=== PATIENT | male | born 1970 | race Native Hawaiian/Other Pacific Islander ===

== ENCOUNTER 2020-02-22 17:47 | Inpatient (IN) | payer OTHER ==
[2020-02-22] MEDS ORDERED: SODIUM CHLORIDE 0.9% 1000 ML 1,000 ML IV ONE (18:00)
--- NOTE | 2020-02-22 18:12 | Emergency Department Report ---
ED Altered Mental Status HPI - General Stated Complaint: AMS/SEPTIC Time Seen by Provider: 02/22/20 17:55 Source: patient, family, EMS Mode of arrival: Stretcher Limitations: Altered Mental Status - History of Present Illness Initial Comments: CC: altered mental status HPI: This is a 50 yo without significant past medical history who presents with altered mental status. He arrived via EMS. History obtained from EMS. Family member stated that for the past 3 months, that he often has been sent home from work. He appeared depressed. His bedroom appeared dirty and very disorganized. He has not showered in days. He has not eaten in days. He is confused. He is unable to recall his name. He thinks that he is in [place]. He denies pain. He appears to have diffuse tenderness when nursing staff took off his clothing. Best 5 minutes developer support engineer used to obtain history. Patient states that he drinks beer every 8 days. MD Complaint: altered mental status, confusion -: Gradual, month(s) (3 months, worse over the last few days) Severity: severe Consistency of Symptoms: constant Context: alcohol abuse Associated Symptoms: denies other symptoms - Related Data Allergies Allergy/AdvReac Type Severity Reaction Status Date / Time No Known Allergies Allergy Unverified 02/22/20 18:14 ED Review of Systems ROS: Stated complaint: AMS/SEPTIC Other details as noted in HPI Comment: Unobtainable due to pts medical conditions (Altered mental status) ED Past Medical Hx - Past Medical History Previous Medical History?: No - Surgical History Past Surgical History?: No - Social History Smoking Status: Current Every Day Smoker Substance Use Type: Alcohol ED Physical Exam - General General appearance: alert, other (Pale jaundice skin tremulous appears ill, does answer questions with short responses) - Head Head exam: Present: atraumatic, normocephalic - Eye Eye exam: Present: PERRL, scleral icterus - ENT ENT exam: Present: mucous membranes moist - Neck Neck exam: Present: normal inspection, full ROM - Respiratory Respiratory exam: Present: normal lung sounds bilaterally. Absent: respiratory distress, wheezes, rales, rhonchi - Cardiovascular Cardiovascular Exam: Present: normal rhythm, tachycardia. Absent: systolic murmur, diastolic murmur, rubs, gallop - GI/Abdominal GI/Abdominal exam: Present: soft, normal bowel sounds. Absent: distended, tenderness, guarding, rebound - Rectal Rectal exam: Present: deferred - Extremities Exam Extremities exam: Present: normal inspection - Back Exam Back exam: Present: normal inspection - Neurological Exam Neurological exam: Present: alert, altered - Psychiatric Psychiatric exam: Present: anxious - Skin Skin exam: Present: warm, dry, intact, other (Jaundice). Absent: rash ED Course Vital Signs 02/22/20 02/22/20 02/22/20 17:55 18:00 18:01 Temperature 98.3 F Pulse Rate 124 H Respiratory 26 H Rate Blood Pressure 114/75 114/75 Blood Pressure [Right] O2 Sat by Pulse 99 100 100 Oximetry 02/22/20 02/22/20 02/22/20 18:15 18:21 18:31 Temperature Pulse Rate 123 H 121 H Respiratory 26 H 26 H 27 H Rate Blood Pressure 108/80 99/80 Blood Pressure [Right] O2 Sat by Pulse 99 99 100 Oximetry 02/22/20 02/22/20 02/22/20 18:45 19:01 19:15 Temperature Pulse Rate 124 H 119 H 119 H Respiratory 31 H 27 H 26 H Rate Blood Pressure 115/94 116/77 112/74 Blood Pressure [Right] O2 Sat by Pulse 98 Oximetry 02/22/20 02/22/20 02/22/20 19:31 20:05 20:31 Temperature Pulse Rate 128 H 112 H Respiratory 29 H 25 H 27 H Rate Blood Pressure 112/83 112/74 120/80 Blood Pressure [Right] O2 Sat by Pulse Oximetry 02/22/20 02/22/20 21:12 23:00 Temperature 98.4 F Pulse Rate 110 H Respiratory 20 22 Rate Blood Pressure Blood Pressure 120/79 [Right] O2 Sat by Pulse 97 Oximetry - Lab Data Result diagrams: 02/22/20 18:13 02/22/20 18:13 Lab Results 02/22/20 02/22/20 02/22/20 Range/Units 18:00 18:08 18:13 WBC 18.6 H (4.5-11.0) K/mm3 RBC 4.01 (3.65-5.03) M/mm3 Hgb 13.0 (11.8-15.2) gm/dl Hct 39.3 (35.5-45.6) % MCV 98 H (84-94) fl MCH 32 (28-32) pg MCHC 33 (32-34) % RDW 16.3 H (13.2-15.2) % Plt Count 208 (140-440) K/mm3 Lymph % (Auto) 7.7 L (13.4-35.0) % [place] % (Auto) 5.1 (0.0-7.3) % Eos % (Auto) 0.3 (0.0-4.3) % Baso % (Auto) 0.3 (0.0-1.8) % Lymph # (Auto) 1.4 (1.2-5.4) K/mm3 [place] # (Auto) 1.0 H (0.0-0.8) K/mm3 Eos # (Auto) 0.1 (0.0-0.4) K/mm3 Baso # (Auto) 0.1 (0.0-0.1) K/mm3 Seg Neutrophils % 86.6 H (40.0-70.0) % Seg Neutrophils # 16.1 H (1.8-7.7) K/mm3 PT (12.2-14.9) Sec. INR (0.87-1.13) Sodium (137-145) mmol/L Potassium (3.6-5.0) mmol/L Chloride (98-107) mmol/L Carbon Dioxide (22-30) mmol/L Anion Gap mmol/L BUN (9-20) mg/dL Creatinine (0.8-1.3) mg/dL Estimated GFR ml/min BUN/Creatinine Ratio % Glucose (75-100) mg/dL POC Glucose 149 H (70-105) Lactic Acid (0.7-2.0) mmol/L Calcium (8.4-10.2) mg/dL Total Bilirubin (0.1-1.2) mg/dL AST (5-40) units/L ALT (7-56) units/L Alkaline Phosphatase (35-129) units/L Ammonia (25-60) umol/L Total Creatine Kinase (55-170) units/L Troponin T (0.00-0.029) ng/mL Total Protein (6.3-8.2) g/dL Albumin (3.9-5) g/dL Albumin/Globulin Ratio % TSH (0.270-4.200) mlU/mL Salicylates (2.8-20.0) mg/dL Urine Opiates Screen Presumptive negative Urine Methadone Screen Presumptive negative Acetaminophen (10.0-30.0) ug/mL Ur Barbiturates Screen Presumptive negative Ur Phencyclidine Scrn Presumptive negative Ur Amphetamines Screen Presumptive negative U Benzodiazepines Scrn Presumptive negative Urine Cocaine Screen Presumptive negative U Marijuana (THC) Screen Presumptive negative Drugs of Abuse Note Disclamer Plasma/Serum Alcohol (0-0.07) % 02/22/20 02/22/20 02/22/20 Range/Units 18:13 18:13 18:13 WBC (4.5-11.0) K/mm3 RBC (3.65-5.03) M/mm3 Hgb (11.8-15.2) gm/dl Hct (35.5-45.6) % MCV (84-94) fl MCH (28-32) pg MCHC (32-34) % RDW (13.2-15.2) % Plt Count (140-440) K/mm3 Lymph % (Auto) (13.4-35.0) % [place] % (Auto) (0.0-7.3) % Eos % (Auto) (0.0-4.3) % Baso % (Auto) (0.0-1.8) % Lymph # (Auto) (1.2-5.4) K/mm3 [place] # (Auto) (0.0-0.8) K/mm3 Eos # (Auto) (0.0-0.4) K/mm3 Baso # (Auto) (0.0-0.1) K/mm3 Seg Neutrophils % (40.0-70.0) % Seg Neutrophils # (1.8-7.7) K/mm3 PT 15.3 H (12.2-14.9) Sec. INR 1.19 H (0.87-1.13) Sodium 130 L (137-145) mmol/L Potassium 3.1 L (3.6-5.0) mmol/L Chloride 92.4 L (98-107) mmol/L Carbon Dioxide 15 L (22-30) mmol/L Anion Gap 26 mmol/L BUN 32 H (9-20) mg/dL Creatinine 0.7 L (0.8-1.3) mg/dL Estimated GFR > 60 ml/min BUN/Creatinine Ratio 46 % Glucose 156 H (75-100) mg/dL POC Glucose (70-105) Lactic Acid 4.70 H* (0.7-2.0) mmol/L Calcium 8.5 (8.4-10.2) mg/dL Total Bilirubin 2.10 H (0.1-1.2) mg/dL AST 97 H (5-40) units/L ALT 45 (7-56) units/L Alkaline Phosphatase 110 (35-129) units/L Ammonia (25-60) umol/L Total Creatine Kinase 759 H (55-170) units/L Troponin T < 0.010 (0.00-0.029) ng/mL Total Protein 7.4 (6.3-8.2) g/dL Albumin 3.2 L (3.9-5) g/dL Albumin/Globulin Ratio 0.8 % TSH (0.270-4.200) mlU/mL Salicylates (2.8-20.0) mg/dL Urine Opiates Screen Urine Methadone Screen Acetaminophen (10.0-30.0) ug/mL Ur Barbiturates Screen Ur Phencyclidine Scrn Ur Amphetamines Screen U Benzodiazepines Scrn Urine Cocaine Screen U Marijuana (THC) Screen Drugs of Abuse Note Plasma/Serum Alcohol (0-0.07) % 02/22/20 02/22/20 02/22/20 Range/Units 18:13 18:13 18:13 WBC (4.5-11.0) K/mm3 RBC (3.65-5.03) M/mm3 Hgb (11.8-15.2) gm/dl Hct (35.5-45.6) % MCV (84-94) fl MCH (28-32) pg MCHC (32-34) % RDW (13.2-15.2) % Plt Count (140-440) K/mm3 Lymph % (Auto) (13.4-35.0) % [place] % (Auto) (0.0-7.3) % Eos % (Auto) (0.0-4.3) % Baso % (Auto) (0.0-1.8) % Lymph # (Auto) (1.2-5.4) K/mm3 [place] # (Auto) (0.0-0.8) K/mm3 Eos # (Auto) (0.0-0.4) K/mm3 Baso # (Auto) (0.0-0.1) K/mm3 Seg Neutrophils % (40.0-70.0) % Seg Neutrophils # (1.8-7.7) K/mm3 PT (12.2-14.9) Sec. INR (0.87-1.13) Sodium (137-145) mmol/L Potassium (3.6-5.0) mmol/L Chloride (98-107) mmol/L Carbon Dioxide (22-30) mmol/L Anion Gap mmol/L BUN (9-20) mg/dL Creatinine (0.8-1.3) mg/dL Estimated GFR ml/min BUN/Creatinine Ratio % Glucose (75-100) mg/dL POC Glucose (70-105) Lactic Acid (0.7-2.0) mmol/L Calcium (8.4-10.2) mg/dL Total Bilirubin (0.1-1.2) mg/dL AST (5-40) units/L ALT (7-56) units/L Alkaline Phosphatase (35-129) units/L Ammonia 59.0 (25-60) umol/L Total Creatine Kinase (55-170) units/L Troponin T (0.00-0.029) ng/mL Total Protein (6.3-8.2) g/dL Albumin (3.9-5) g/dL Albumin/Globulin Ratio % TSH 0.843 (0.270-4.200) mlU/mL Salicylates < 0.3 L (2.8-20.0) mg/dL Urine Opiates Screen Urine Methadone Screen Acetaminophen (10.0-30.0) ug/mL Ur Barbiturates Screen Ur Phencyclidine Scrn Ur Amphetamines Screen U Benzodiazepines Scrn Urine Cocaine Screen U Marijuana (THC) Screen Drugs of Abuse Note Plasma/Serum Alcohol (0-0.07) % 02/22/20 02/22/20 02/22/20 Range/Units 18:13 18:13 19:25 WBC (4.5-11.0) K/mm3 RBC (3.65-5.03) M/mm3 Hgb (11.8-15.2) gm/dl Hct (35.5-45.6) % MCV (84-94) fl MCH (28-32) pg MCHC (32-34) % RDW (13.2-15.2) % Plt Count (140-440) K/mm3 Lymph % (Auto) (13.4-35.0) % [place] % (Auto) (0.0-7.3) % Eos % (Auto) (0.0-4.3) % Baso % (Auto) (0.0-1.8) % Lymph # (Auto) (1.2-5.4) K/mm3 [place] # (Auto) (0.0-0.8) K/mm3 Eos # (Auto) (0.0-0.4) K/mm3 Baso # (Auto) (0.0-0.1) K/mm3 Seg Neutrophils % (40.0-70.0) % Seg Neutrophils # (1.8-7.7) K/mm3 PT (12.2-14.9) Sec. INR (0.87-1.13) Sodium (137-145) mmol/L Potassium (3.6-5.0) mmol/L Chloride (98-107) mmol/L Carbon Dioxide (22-30) mmol/L Anion Gap mmol/L BUN (9-20) mg/dL Creatinine (0.8-1.3) mg/dL Estimated GFR ml/min BUN/Creatinine Ratio % Glucose (75-100) mg/dL POC Glucose (70-105) Lactic Acid 3.80 H* (0.7-2.0) mmol/L Calcium (8.4-10.2) mg/dL Total Bilirubin (0.1-1.2) mg/dL AST (5-40) units/L ALT (7-56) units/L Alkaline Phosphatase (35-129) units/L Ammonia (25-60) umol/L Total Creatine Kinase (55-170) units/L Troponin T (0.00-0.029) ng/mL Total Protein (6.3-8.2) g/dL Albumin (3.9-5) g/dL Albumin/Globulin Ratio % TSH (0.270-4.200) mlU/mL Salicylates (2.8-20.0) mg/dL Urine Opiates Screen Urine Methadone Screen Acetaminophen 5.0 L (10.0-30.0) ug/mL Ur Barbiturates Screen Ur Phencyclidine Scrn Ur Amphetamines Screen U Benzodiazepines Scrn Urine Cocaine Screen U Marijuana (THC) Screen Drugs of Abuse Note Plasma/Serum Alcohol < 0.01 (0-0.07) % - EKG Data -: EKG Interpreted by Me EKG shows normal: sinus rhythm, axis, QRS complexes, ST-T waves Rate: tachycardia 02/22/20 19:25 EKG obtained 192 EKG obtained by me Sinus tachycardia rate 120 bpm normal axis prolonged QTC no ST elevation nonspecific T wave pattern - Medical Decision Making Acute toxic metabolic encephalopathy: DDX: delirium tremens, uremia, depression, intentional overdose, hepatic encephalopathy. Patient has obvious confusion. Unclear etiology. Hypovolemic Hyponatremia suspected with vasomotor nephropathy with hx of decreased po intake. alcoholic ketoacidosis vs starvation ketoacidosis suspected Garcia catheter placed with concern for retention. After volume resuscitation, no urine output in spite mildly distended bladder on CT. 300 mL dark urine expressed with garcia insertion. Elevated bilirubin, increased AST, fatty liver on CT: suspect alcoholic liver disease vs viral hepatitis SIRS criteria no obvious source Patient is admitted to the hospital service in fair condition Critical care attestation.: If time is entered above; I have spent that time in minutes in the direct care of this critically ill patient, excluding procedure time. ED Disposition Clinical Impression: Acute encephalopathy, SIRS (systemic inflammatory response syndrome), Alcoholic ketoacidosis, Alcoholic liver disease, Acute kidney injury, Hypovolemia d ehydration Disposition: 09 OP ADMIT IP TO THIS HOSP Is pt being admited?: Yes Does the pt Need Aspirin: No Condition: Fair
[2020-02-22 18:46] LABS: Basophils # (Auto) 0.1 K/mm3 (0.0-0.1); Basophils % (Auto) 0.3 % (0.0-1.8); Eosinophils # (Auto) 0.1 K/mm3 (0.0-0.4); Eosinophils % (Auto) 0.3 % (0.0-4.3); Hematocrit 39.3 % (35.5-45.6); Lymphocytes # (Auto) 1.4 K/mm3 (1.2-5.4); Lymphocytes % (Auto) 7.7 % (13.4-35.0); Mean Corpuscular HGB Conc 33 % (32-34); Mean Corpuscular Volume 98 fl (84-94); Monocytes % (Auto) 5.1 % (0.0-7.3); Platelet Count 208 K/mm3 (140-440); Red Blood Count 4.01 M/mm3 (3.65-5.03); Red Cell Distribution Width 16.3 % (13.2-15.2)
[2020-02-22 19:03] LABS: Alanine Aminotransferase 45 units/L (7-56); Albumin 3.2 g/dL (3.9-5); Blood Urea Nitrogen 32 mg/dL (9-20); Calcium 8.5 mg/dL (8.4-10.2); Hemolysis Index 8
[2020-02-22 19:07] LABS: INR 1.19 (0.87-1.13)
[2020-02-22 19:14] LABS: BUN/Creatinine Ratio 46
[2020-02-22] MEDS ORDERED: SODIUM CHLORIDE 0.9% 1000 ML IV SOLN IV ONE (19:21)
[2020-02-22] MEDS ORDERED: VANCOMYCIN 1,500 MG in SODIUM CHLORIDE 0.9% 500 ML 500 ML IV ONE (19:21)
[2020-02-22] MEDS ORDERED: VANCOMYCIN PHARMACY TO DOSE IV SCH (20:00)
--- NOTE | 2020-02-22 20:04 | XRay Report ---
CHEST 1 VIEW INDICATION / CLINICAL INFORMATION: Altered Mental Status. COMPARISON: None available. FINDINGS: SUPPORT DEVICES: None. HEART / MEDIASTINUM: No significant abnormality. LUNGS / PLEURA: No significant pulmonary or pleural abnormality. No pneumothorax. ADDITIONAL FINDINGS: No significant additional findings. IMPRESSION: 1. No acute findings. Signer Name: Casey Valle MD Signed: 02/22/2020 8:00 PM Workstation Name: [id number]
[2020-02-22] MEDS: CEFEPIME/NS 2 GM/100 ML 2 GM/100 ML BAG IV SCH (20:12)
--- NOTE | 2020-02-22 20:27 | Cat Scan Report ---
. CT head/brain wo con INDICATION / CLINICAL INFORMATION: 50 years Male; Altered Mental Status. TECHNIQUE: Routine CT head without contrast. All CT scans at this location are performed using CT dos e reduction for ALARA by means of automated exposure control. Study limited by motion and patient pos itioning in the scanner. COMPARISON: None. FINDINGS: BRAIN / INTRACRANIAL CONTENTS: No acute hemorrhage, mass effect, midline shift, hydrocephalus, or acu te, large territorial infarct. No chronic infarct or atrophy appreciated. No significant white matter abnormality. CRANIOCERVICAL JUNCTION: No significant abnormality. ORBITS: No significant abnormality of visualized orbits. SINUSES / MASTOIDS: No significant abnormality in the visualized paranasal sinuses or mastoid air tone ls. ADDITIONAL FINDINGS: None. IMPRESSION: 1. No focal mass, hemorrhage, hydrocephalus, or acute, large territorial infarct. Signer Name: Andres Ryan MD, III Signed: 02/22/2020 8:23 PM Workstation Name: [facility] CENTERHouseTripATLANTIC RE[facility] IN[facility]1
--- NOTE | 2020-02-22 21:10 | Cat Scan Report ---
CT CHEST, ABDOMEN, AND PELVIS WITH CONTRAST INDICATION: altered mental status, SIRS CONTRAST: 100 cc Omnipaque 300 IV COMPARISON: None available. All CT scans at this location are performed using CT dose reduction for ALARA by means of automated e xposure control. FINDINGS: No significant axillary or chest wall abnormalities are seen. No mediastinal or hilar any s are noted. No pleural effusions are seen. No obvious endobronchial lesions are noted. No pneumothor ax or pneumomediastinum are noted. Mild motion artifact is seen in the lung gonzalez but no areas of co nsolidation are seen. No obvious pulmonary nodules or masses are noted. Mild atelectatic changes are seen in the right lower lobe. No pneumoperitoneum is seen. Prominent fatty infiltration of the liver is noted without obvious focal lesion. The liver is not significantly enlarged however though is at the upper end of the normal ran ge in size at 17.2 cm. Spleen appears within normal limits. I see no abnormalities of the bile ducts, pancreas, adrenals, or left kidney. Right kidney shows a minimal probable cyst. Gallbladder is mildl y distended but shows no wall thickening or calculi. Appendix appears within normal limits. No evidence of bowel obstruction is seen. Colon is mildly dist ended with gas, particularly in the transverse colon. I do not see colonic wall thickening. Stomach i s mildly distended with gas and fluid. No focal inflammatory changes are seen. No abnormal fluid collections are seen to suggest an abscess. No lymphadenopathy is seen. No urinary obstructive changes are noted. No free fluid is seen. Urinary bladder is mildly distended but shows no other abnormalities. Prostate is slightly prominent in size . Seminal vesicles appear within normal limits. IMPRESSION: No acute abnormalities are seen. No obvious source of SIRS is noted. Signer Name: Uli Urrutia MD Signed: 02/22/2020 9:05 PM Workstation Name: [id number]
[2020-02-22] MEDS ORDERED: MAGNESIUM HYDROXIDE (MOM) ORAL LIQD UDC PO PRN (22:31)
--- NOTE | 2020-02-22 22:36 | History and Physical Report ---
History of Present Illness Date of examination: 02/22/20 Date of admission: 02/22/2020 Chief complaint: Altered Mental Status History of present illness: 50-year-old male with known history of alcohol abuse presents to the emergency room today for evaluation of changes in mental status. Family members indicates that over the past 3 months he has been sent back home from work as he appeared depressed. His apartment was said to be disorganized and unkept. He has not been taking a shower and he has also had decreased oral intake over the past 1 week. Patient appeared tremulous and confused but was able to answer a few questions through an wind energy engineer. Work-up in the emergency room today reveals a leukocytosis of 18.6. CT of the chest, abdomen and pelvis were unremarkable. He had elevated lactic acid and elevated BUN and creatinine. Patient is being admitted for encephalopathy, acute kidney injury, lactic acidosis and possible alcohol withdrawal. Past History Past Medical History: No medical history Past Surgical History: No surgical history Social history: smoking (Current daily smoker), alcohol abuse Family history: no significant family history Medications and Allergies Allergies Allergy/AdvReac Type Severity Reaction Status Date / Time No Known Allergies Allergy Unverified 02/22/20 18:14 Active Meds: Active Medications Cefepime HCl (Cefepime/Ns 2 Gm/100 Ml) 2 gm in 100 mls @ 200 mls/hr IV Q8HR [facility]; Protocol Last Admin: 02/22/20 20:12 Dose: 200 mls/hr Documented by: Vancomycin HCl 1,250 mg/ (Sodium Chloride) 275 mls @ 166.667 mls/hr IV Q12H [facility] Sodium Chloride (Nacl 0.9% 1000 Ml) 1,000 mls @ 125 mls/hr IV DIRECT [facility]INCENT Magnesium Hydroxide (Milk Of Magnesia) 30 ml PO Q4H PRN PRN Reason: Constipation Ondansetron HCl (Zofran) 4 mg IV Q8H PRN PRN Reason: Nausea And Vomiting Sodium Chloride (Sodium Chloride Flush Syringe 10 Ml) 10 ml IV BID [facility]ENT Sodium Chloride (Sodium Chloride Flush Syringe 10 Ml) 10 ml IV PRN PRN PRN Reason: LINE FLUSH Review of Systems ROS unobtainable: due to mental status Exam - Constitutional Vitals: Temp Pulse Resp BP Pulse Ox 98.3 F 112 H 20 120/80 98 02/22/20 18:01 02/22/20 20:05 02/22/20 21:12 02/22/20 20:31 02/22/20 18:45 General appearance: Present: no acute distress, well-nourished, other (Confused,Mildly tremulous) - EENT Eyes: Present: PERRL, EOM intact, scleral icterus (Tinge) ENT: hearing intact, clear oral mucosa, dentition normal - Neck Neck: Present: supple, normal ROM - Respiratory Respiratory effort: normal Respiratory: bilateral: CTA - Cardiovascular Rhythm: regular Heart Sounds: Present: S1 & S2. Absent: gallop, systolic murmur, diastolic murmur, rub - Extremities Extremities: no ischemia, pulses intact, pulses symmetrical, No edema, Full ROM Peripheral Pulses: within normal limits - Abdominal General gastrointestinal: Present: soft, non-tender, non-distended. Absent: mas s - Integumentary Integumentary: Present: clear, warm, dry. Absent: rash - Musculoskeletal Musculoskeletal: strength equal bilaterally - Psychiatric Psychiatric: appropriate mood/affect, intact judgment & insight, memory intact, cooperative - Neurologic Neurologic: CNII-XII intact, no focal deficits, moves all extremities HEART Score - HEART Score Troponin: Troponin T < 0.010 ng/mL (0.00-0.029) 02/22/20 18:13 Results - Labs CBC & Chem 7: 02/22/20 18:13 02/22/20 18:13 Labs: Abnormal lab results 02/22/20 02/22/20 02/22/20 Range/Units 18:08 18:13 18:13 WBC 18.6 H (4.5-11.0) K/mm3 MCV 98 H (84-94) fl RDW 16.3 H (13.2-15.2) % Lymph % (Auto) 7.7 L (13.4-35.0) % [place] # (Auto) 1.0 H (0.0-0.8) K/mm3 Seg Neutrophils % 86.6 H (40.0-70.0) % Seg Neutrophils # 16.1 H (1.8-7.7) K/mm3 PT 15.3 H (12.2-14.9) Sec. INR 1.19 H (0.87-1.13) Sodium (137-145) mmol/L Potassium (3.6-5.0) mmol/L Chloride (98-107) mmol/L Carbon Dioxide (22-30) mmol/L BUN (9-20) mg/dL Creatinine (0.8-1.3) mg/dL Glucose (75-100) mg/dL POC Glucose 149 H (70-105) Lactic Acid (0.7-2.0) mmol/L Total Bilirubin (0.1-1.2) mg/dL AST (5-40) units/L Total Creatine Kinase (55-170) units/L Albumin (3.9-5) g/dL Salicylates (2.8-20.0) mg/dL Acetaminophen (10.0-30.0) ug/mL 02/22/20 02/22/20 02/22/20 Range/Units 18:13 18:13 18:13 WBC (4.5-11.0) K/mm3 MCV (84-94) fl RDW (13.2-15.2) % Lymph % (Auto) (13.4-35.0) % [place] # (Auto) (0.0-0.8) K/mm3 Seg Neutrophils % (40.0-70.0) % Seg Neutrophils # (1.8-7.7) K/mm3 PT (12.2-14.9) Sec. INR (0.87-1.13) Sodium 130 L (137-145) mmol/L Potassium 3.1 L (3.6-5.0) mmol/L Chloride 92.4 L (98-107) mmol/L Carbon Dioxide 15 L (22-30) mmol/L BUN 32 H (9-20) mg/dL Creatinine 0.7 L (0.8-1.3) mg/dL Glucose 156 H (75-100) mg/dL POC Glucose (70-105) Lactic Acid 4.70 H* (0.7-2.0) mmol/L Total Bilirubin 2.10 H (0.1-1.2) mg/dL AST 97 H (5-40) units/L Total Creatine Kinase 759 H (55-170) units/L Albumin 3.2 L (3.9-5) g/dL Salicylates < 0.3 L (2.8-20.0) mg/dL Acetaminophen (10.0-30.0) ug/mL 02/22/20 02/22/20 Range/Units 18:13 19:25 WBC (4.5-11.0) K/mm3 MCV (84-94) fl RDW (13.2-15.2) % Lymph % (Auto) (13.4-35.0) % [place] # (Auto) (0.0-0.8) K/mm3 Seg Neutrophils % (40.0-70.0) % Seg Neutrophils # (1.8-7.7) K/mm3 PT (12.2-14.9) Sec. INR (0.87-1.13) Sodium (137-145) mmol/L Potassium (3.6-5.0) mmol/L Chloride (98-107) mmol/L Carbon Dioxide (22-30) mmol/L BUN (9-20) mg/dL Creatinine (0.8-1.3) mg/dL Glucose (75-100) mg/dL POC Glucose (70-105) Lactic Acid 3.80 H* (0.7-2.0) mmol/L Total Bilirubin (0.1-1.2) mg/dL AST (5-40) units/L Total Creatine Kinase (55-170) units/L Albumin (3.9-5) g/dL Salicylates (2.8-20.0) mg/dL Acetaminophen 5.0 L (10.0-30.0) ug/mL Assessment and Plan - Patient Problems (1) Acute encephalopathy Current Visit: Yes Status: Acute Plan to address problem: Etiology is unclear. Possibly secondary to his alcohol abuse Will monitor mental status. (2) Alcoholic ketoacidosis Current Visit: Yes Status: Acute Plan to address problem: Patient has known history of alcohol abuse. Will monitor for alcohol wi thdrawals symptoms. Patient placed on CIWA protocol (3) SIRS (systemic inflammatory response syndrome) Current Visit: Yes Status: Acute Plan to address problem: Patient started on empiric IV antibiotics and IV fluid. Will await blood culture results. (4) Hypokalemia Current Visit: Yes Status: Acute Plan to address problem: We will replete potassium and monitor chemistry. (5) DVT prophylaxis Current Visit: Yes Status: Acute Plan to address problem: Patient placed on subcutaneous heparin. (6) Full code status Current Visit: Yes Status: Acute
[2020-02-22] MEDS: SODIUM CHLORIDE 0.9% 1000 ML 1,000 ML IV SCH (23:29)
[2020-02-22] MEDS ORDERED: SODIUM CHLORIDE 0.9% 1000 ML 1,000 ML ONE (23:29)
[2020-02-23 00:11] LABS: Amphetamine Screen,Urine PRESUMPTIVE NEGATIVE; Benzodiazepines Screen,Urine PRESUMPTIVE NEGATIVE; Cannabinoid Screen,Urine PRESUMPTIVE NEGATIVE; Cocaine Screen,Urine PRESUMPTIVE NEGATIVE; Methadone Screen,Urine PRESUMPTIVE NEGATIVE; Opiate Screen,Urine PRESUMPTIVE NEGATIVE
[2020-02-23 01:00] LABS: Bacteria,Urine 1+ /HPF (Negative); Bilirubin,Urine NEG (Negative); Blood,Urine NEG (Negative); Color,Urine Amber (Yellow); Mucus,Urine 2+ /HPF; Protein,Urine <15 mg/dL mg/dL (Negative)
[2020-02-23] MEDS: CEFEPIME/NS 2 GM/100 ML 2 GM/100 ML BAG IV SCH ×3 (06:31→22:06)
[2020-02-23 07:57] LABS: Basophils # (Auto) 0.1 K/mm3 (0.0-0.1); Basophils % (Auto) 0.6 % (0.0-1.8); Eosinophils # (Auto) 0.2 K/mm3 (0.0-0.4); Eosinophils % (Auto) 1.1 % (0.0-4.3); Hematocrit 31.4 % (35.5-45.6); Hemoglobin 10.7 gm/dl (11.8-15.2); Lymphocytes # (Auto) 1.3 K/mm3 (1.2-5.4); Lymphocytes % (Auto) 9.4 % (13.4-35.0); Mean Corpuscular HGB Conc 34 % (32-34); Mean Corpuscular Volume 97 fl (84-94); Monocytes # (Auto) 0.8 K/mm3 (0.0-0.8); Monocytes % (Auto) 5.7 % (0.0-7.3); Platelet Count 146 K/mm3 (140-440); Red Blood Count 3.23 M/mm3 (3.65-5.03); Red Cell Distribution Width 15.9 % (13.2-15.2)
[2020-02-23] MEDS ORDERED: VANCOMYCIN 1,250 MG in SODIUM CHLORIDE 0.9% 250ML 250 ML IV SCH (08:00)
[2020-02-23] MEDS ORDERED: POTASSIUM CHLORIDE 10 MEQ 10 MEQ/100 ML BAG IV ONE (08:00)
[2020-02-23 08:11] LABS: Blood Urea Nitrogen 20 mg/dL (9-20); Calcium 7.7 mg/dL (8.4-10.2); Hemolysis Index 0
[2020-02-23] MEDS: SODIUM CHLORIDE 0.9% 1000 ML 1,000 ML IV SCH ×2 (08:23→22:09)
[2020-02-23 08:24] LABS: INR 1.33 (0.87-1.13)
[2020-02-23 08:25] LABS: BUN/Creatinine Ratio 50
[2020-02-23] MEDS: POTASSIUM CHLORIDE ER 20 MEQ TAB PO SCH ×3 (09:57→17:28)
[2020-02-23] MEDS ORDERED: POTASSIUM CHLORIDE ER 20 MEQ TAB PO SCH (10:00)
--- NOTE | 2020-02-23 11:58 | Progress Note ---
Subjective Date of service: 02/23/20 Interval history: History of present illness: 50-year-old male with known history of alcohol abuse presents to the emergency room today for evaluation of changes in mental status. Family members indicates that over the past 3 months he has been sent back home from work as he appeared depressed. His apartment was said to be disorganized and unkept. He has not been taking a shower and he has also had decreased oral intake over the past 1 week. Patient appeared tremulous and confused but was able to answer a few questions through an ship harbor pilot. Work-up in the emergency room today reveals a leukocytosis of 18.6. CT of the chest, abdomen and pelvis were unremarkable. He had elevated lactic acid and elevated BUN and creatinine. Patient is being admitted for encephalopathy, acute kidney injury, lactic acidosis and possible alcohol withdrawal. 02/22 patient is awake and alert, [id number], information obtained through an unofficial assistant manager pt, he does not know how he got into the hospital, he is oriented to his name and age, states the year is 2016. He denies any fever or chills. Denies chest pain or shortness of breath, denies nausea or abdominal pain or dysuria. He states he drinks about 3-4 beers a day and denies hard liquor. Denies smoking. Lab results reviewed Assessment and plan: Acute encephalopathy Rule out toxic versus metabolic versus alcoholism Appears to be improving well He is alert and oriented and responds to questions fairly well Continue IV fluids Sepsis versus SIRS: Blood cultures obtained Results pending Serial lactic acid levels are elevated but fluctuating up and down Continue empiric antibiotic with cefepime However will discontinue vancomycin for now No focus of infection Chest x-ray is reviewed Neutrophilic leukocytosis Reactive versus infection Improving WBC down to 13.6 today Continue empiric antibiotic Normocytic anemia No overt bleed Monitor H&H Hyponatremia Resolved Acute kidney injury-secondary to dehydration Improved Hypokalemia Serum potassium further dropped to 2.9 this morning Serum magnesium is in the normal range Oral potassium supplements were ordered Monitor electrolytes Elevated LFTs Only AST is elevated (mild) suggestive of alcohol etiology Monitor Mildly elevated CK Likely mild nontraumatic rhabdomyolysis Continue IV fluids Repeat CK levels in a.m. Objective - Constitutional Vitals: Vital Signs - 12hr 02/22/20 02/23/20 02/23/20 23:51 00:05 00:26 Temperature 97.8 F Pulse Rate 107 H 105 H 107 H Pulse Rate [ 98 H Apical] Pulse Rate [ Left Radial] Pulse Rate [ Right Radial] Respiratory 21 20 20 Rate Respiratory Rate [KYMBERLY] Blood Pressure 113/78 110/74 O2 Sat by Pulse 100 96 99 Oximetry 02/23/20 02/23/20 02/23/20 04:27 08:06 10:53 Temperature 98.7 F 98.3 F Pulse Rate 102 H 110 H Pulse Rate [ 106 H Apical] Pulse Rate [ 106 H Left Radial] Pulse Rate [ 106 H Right Radial] Respiratory 20 20 17 Rate Respiratory Rate [KYMBERLY] Blood Pressure 110/65 115/83 O2 Sat by Pulse 97 96 98 Oximetry 02/23/20 10:58 Temperature Pulse Rate Pulse Rate [ Apical] Pulse Rate [ Left Radial] Pulse Rate [ Right Radial] Respiratory Rate Respiratory 17 Rate [KYMBERLY] Blood Pressure O2 Sat by Pulse Oximetry General appearance: Present: no acute distress, well-nourished - EENT Eyes: PERRL, EOM intact ENT: hearing intact, clear oral mucosa - Neck Neck: supple, normal ROM, no masses or JVD - Respiratory Respiratory effort: normal Respiratory: bilateral: CTA - Cardiovascular Rhythm: regular Heart Sounds: Present: S1 & S2 Extremities: No edema - Gastrointestinal General gastrointestinal: Present: soft, non-tender Rectal Exam: deferred - Genitourinary Male genitourinary: deferred - Integumentary Integumentary: clear - Musculoskeletal Musculoskeletal: strength equal bilaterally - Neurologic Neurologic: moves all extremities - Psychiatric Psychiatric: appropriate mood/affect, cooperative - Labs CBC & Chem 7: 02/23/20 07:41 02/23/20 07:41 Labs: Abnormal lab results 02/22/20 02/22/20 02/22/20 Range/Units 18:08 18:13 18:13 WBC 18.6 H (4.5-11.0) K/mm3 RBC (3.65-5.03) M/mm3 Hgb (11.8-15.2) gm/dl Hct (35.5-45.6) % MCV 98 H (84-94) fl MCH (28-32) pg RDW 16.3 H (13.2-15.2) % Lymph % (Auto) 7.7 L (13.4-35.0) % Harper # (Auto) 1.0 H (0.0-0.8) K/mm3 Seg Neutrophils % 86.6 H (40.0-70.0) % Seg Neutrophils # 16.1 H (1.8-7.7) K/mm3 PT 15.3 H (12.2-14.9) Sec. INR 1.19 H (0.87-1.13) Sodium (137-145) mmol/L Potassium (3.6-5.0) mmol/L Chloride (98-107) mmol/L Carbon Dioxide (22-30) mmol/L BUN (9-20) mg/dL Creatinine (0.8-1.3) mg/dL Glucose (75-100) mg/dL POC Glucose 149 H (70-105) Lactic Acid (0.7-2.0) mmol/L Calcium (8.4-10.2) mg/dL Phosphorus (2.5-4.5) mg/dL Total Bilirubin (0.1-1.2) mg/dL AST (5-40) units/L Total Creatine Kinase (55-170) units/L Albumin (3.9-5) g/dL Salicylates (2.8-20.0) mg/dL Acetaminophen (10.0-30.0) ug/mL 02/22/20 02/22/20 02/22/20 Range/Units 18:13 18:13 18:13 WBC (4.5-11.0) K/mm3 RBC (3.65-5.03) M/mm3 Hgb (11.8-15.2) gm/dl Hct (35.5-45.6) % MCV (84-94) fl MCH (28-32) pg RDW (13.2-15.2) % Lymph % (Auto) (13.4-35.0) % Harper # (Auto) (0.0-0.8) K/mm3 Seg Neutrophils % (40.0-70.0) % Seg Neutrophils # (1.8-7.7) K/mm3 PT (12.2-14.9) Sec. INR (0.87-1.13) Sodium 130 L (137-145) mmol/L Potassium 3.1 L (3.6-5.0) mmol/L Chloride 92.4 L (98-107) mmol/L Carbon Dioxide 15 L (22-30) mmol/L BUN 32 H (9-20) mg/dL Creatinine 0.7 L (0.8-1.3) mg/dL Glucose 156 H (75-100) mg/dL POC Glucose (70-105) Lactic Acid 4.70 H* (0.7-2.0) mmol/L Calcium (8.4-10.2) mg/dL Phosphorus (2.5-4.5) mg/dL Total Bilirubin 2.10 H (0.1-1.2) mg/dL AST 97 H (5-40) units/L Total Creatine Kinase 759 H (55-170) units/L Albumin 3.2 L (3.9-5) g/dL Salicylates < 0.3 L (2.8-20.0) mg/dL Acetaminophen (10.0-30.0) ug/mL 02/22/20 02/22/20 02/23/20 Range/Units 18:13 19:25 00:25 WBC (4.5-11.0) K/mm3 RBC (3.65-5.03) M/mm3 Hgb (11.8-15.2) gm/dl Hct (35.5-45.6) % MCV (84-94) fl MCH (28-32) pg RDW (13.2-15.2) % Lymph % (Auto) (13.4-35.0) % Harper # (Auto) (0.0-0.8) K/mm3 Seg Neutrophils % (40.0-70.0) % Seg Neutrophils # (1.8-7.7) K/mm3 PT (12.2-14.9) Sec. INR (0.87-1.13) Sodium (137-145) mmol/L Potassium (3.6-5.0) mmol/L Chloride (98-107) mmol/L Carbon Dioxide (22-30) mmol/L BUN (9-20) mg/dL Creatinine (0.8-1.3) mg/dL Glucose (75-100) mg/dL POC Glucose (70-105) Lactic Acid 3.80 H* 3.60 H* (0.7-2.0) mmol/L Calcium (8.4-10.2) mg/dL Phosphorus (2.5-4.5) mg/dL Total Bilirubin (0.1-1.2) mg/dL AST (5-40) units/L Total Creatine Kinase (55-170) units/L Albumin (3.9-5) g/dL Salicylates (2.8-20.0) mg/dL Acetaminophen 5.0 L (10.0-30.0) ug/mL 02/23/20 02/23/20 02/23/20 Range/Units 00:25 07:41 07:41 WBC 13.6 H (4.5-11.0) K/mm3 RBC 3.23 L (3.65-5.03) M/mm3 Hgb 10.7 L (11.8-15.2) gm/dl Hct 31.4 L D (35.5-45.6) % MCV 97 H (84-94) fl MCH 33 H (28-32) pg RDW 15.9 H (13.2-15.2) % Lymph % (Auto) 9.4 L (13.4-35.0) % Harper # (Auto) (0.0-0.8) K/mm3 Seg Neutrophils % 83.2 H (40.0-70.0) % Seg Neutrophils # 11.3 H (1.8-7.7) K/mm3 PT 16.6 H (12.2-14.9) Sec. INR 1.33 H (0.87-1.13) Sodium (137-145) mmol/L Potassium (3.6-5.0) mmol/L Chloride (98-107) mmol/L Carbon Dioxide (22-30) mmol/L BUN (9-20) mg/dL Creatinine (0.8-1.3) mg/dL Glucose (75-100) mg/dL POC Glucose (70-105) Lactic Acid (0.7-2.0) mmol/L Calcium (8.4-10.2) mg/dL Phosphorus 2.20 L (2.5-4.5) mg/dL Total Bilirubin (0.1-1.2) mg/dL AST (5-40) units/L Total Creatine Kinase (55-170) units/L Albumin (3.9-5) g/dL Salicylates (2.8-20.0) mg/dL Acetaminophen (10.0-30.0) ug/mL 02/23/20 02/23/20 02/23/20 Range/Units 07:41 07:41 09:08 WBC (4.5-11.0) K/mm3 RBC (3.65-5.03) M/mm3 Hgb (11.8-15.2) gm/dl Hct (35.5-45.6) % MCV (84-94) fl MCH (28-32) pg RDW (13.2-15.2) % Lymph % (Auto) (13.4-35.0) % Harper # (Auto) (0.0-0.8) K/mm3 Seg Neutrophils % (40.0-70.0) % Seg Neutrophils # (1.8-7.7) K/mm3 PT (12.2-14.9) Sec. INR (0.87-1.13) Sodium (137-145) mmol/L Potassium 2.9 L* (3.6-5.0) mmol/L Chloride (98-107) mmol/L Carbon Dioxide (22-30) mmol/L BUN (9-20) mg/dL Creatinine 0.4 L (0.8-1.3) mg/dL Glucose 114 H (75-100) mg/dL POC Glucose (70-105) Lactic Acid 2.10 H* 2.30 H* (0.7-2.0) mmol/L Calcium 7.7 L (8.4-10.2) mg/dL Phosphorus (2.5-4.5) mg/dL Total Bilirubin (0.1-1.2) mg/dL AST (5-40) units/L Total Creatine Kinase (55-170) units/L Albumin (3.9-5) g/dL Salicylates (2.8-20.0) mg/dL Acetaminophen (10.0-30.0) ug/mL 02/23/20 Range/Units 10:03 WBC (4.5-11.0) K/mm3 RBC (3.65-5.03) M/mm3 Hgb (11.8-15.2) gm/dl Hct (35.5-45.6) % MCV (84-94) fl MCH (28-32) pg RDW (13.2-15.2) % Lymph % (Auto) (13.4-35.0) % Harper # (Auto) (0.0-0.8) K/mm3 Seg Neutrophils % (40.0-70.0) % Seg Neutrophils # (1.8-7.7) K/mm3 PT (12.2-14.9) Sec. INR (0.87-1.13) Sodium (137-145) mmol/L Potassium (3.6-5.0) mmol/L Chloride (98-107) mmol/L Carbon Dioxide (22-30) mmol/L BUN (9-20) mg/dL Creatinine (0.8-1.3) mg/dL Glucose (75-100) mg/dL POC Glucose (70-105) Lactic Acid 2.30 H* (0.7-2.0) mmol/L Calcium (8.4-10.2) mg/dL Phosphorus (2.5-4.5) mg/dL Total Bilirubin (0.1-1.2) mg/dL AST (5-40) units/L Total Creatine Kinase (55-170) units/L Albumin (3.9-5) g/dL Salicylates (2.8-20.0) mg/dL Acetaminophen (10.0-30.0) ug/mL HEART Score - HEART Score Troponin: Troponin T < 0.010 ng/mL (0.00-0.029) 02/22/20 18:13
[2020-02-23] MEDS: HEPARIN 5,000 UNIT/1 ML VIAL SUB-Q SCH ×2 (13:00→22:09)
[2020-02-24] MEDS: HEPARIN 5,000 UNIT/1 ML VIAL SUB-Q SCH ×3 (06:28→22:56)
[2020-02-24] MEDS: CEFEPIME/NS 2 GM/100 ML 2 GM/100 ML BAG IV SCH ×3 (06:28→22:54)
[2020-02-24] MEDS: SODIUM CHLORIDE 0.9% 1000 ML 1,000 ML IV SCH ×2 (07:16→19:25)
[2020-02-24 07:50] LABS: Hematocrit 29.1 % (35.5-45.6); Hemoglobin 9.8 gm/dl (11.8-15.2); Mean Corpuscular HGB Conc 34 % (32-34); Mean Corpuscular Volume 98 fl (84-94); Platelet Count 119 K/mm3 (140-440); Red Blood Count 2.96 M/mm3 (3.65-5.03)
[2020-02-24 08:07] LABS: Alanine Aminotransferase 33 units/L (7-56); Albumin 2.5 g/dL (3.9-5); Blood Urea Nitrogen 15 mg/dL (9-20); Calcium 7.7 mg/dL (8.4-10.2); Hemolysis Index 2
[2020-02-24 08:08] LABS: BUN/Creatinine Ratio 38
--- NOTE | 2020-02-24 17:32 | Discharge Summary ---
Providers - Providers Date of Admission: 02/22/20 22:07 Date of discharge: 02/24/20 Attending physician: NBA FRANCO Primary care physician: LIBRARY INFORMATION TECHNICIAN Hospitalization Condition: Fair Hospital course: 50-year-old male with known history of alcohol abuse presents to the emergency room today for evaluation of changes in mental status. Family members indicates that over the past 3 months he has been sent back home from work as he appeared depressed. His apartment was said to be disorganized and unkept. He has not been taking a shower and he has also had decreased oral intake over the past 1 week. Patient appeared tremulous and confused but was able to answer a few questions through an certified court/medical interpreter. Work-up in the emergency room today reveals a leukocytosis of 18.6. CT of the chest, abdomen and pelvis were unremarkable. He had elevated lactic acid and elevated BUN and creatinine. Patient is being admitted for encephalopathy, acute kidney injury, lactic acidosis and possible alcohol withdrawal. 02/22 patient is awake and alert, [id number], information obtained through an unofficial drum sprayer, he does not know how he got into the hospita l, he is oriented to his name and age, states the year is 2016. He denies any fever or chills. Denies chest pain or shortness of breath, denies nausea or abdominal pain or dysuria. He states he drinks about 3-4 beers a day and denies hard liquor. Denies smoking. Lab results reviewed Patient stable alert and oriented. No withdrawal effects. Assessment and plan: Acute encephalopathy Rule out toxic versus metabolic versus alcoholism Secondary to alcoholism. Sepsis versus SIRS: Blood cultures obtained No need for antibiotics. Altered sensorium secondary to alcohol. Leukocytes 6 improved to normal. Normocytic anemia No overt bleed Monitor H&H Hyponatremia Resolved Acute kidney injury-secondary to dehydration Improved Hypokalemia Serum potassium further dropped to 2.9 this morning Serum magnesium is in the normal range Oral potassium supplements were ordered Monitor electrolytes Supplemented Elevated LFTs Only AST is elevated (mild) suggestive of alcohol etiology Monitor Mildly elevated CK Likely mild nontraumatic rhabdomyolysis Continue IV fluids Repeat CK levels in a.m. Disposition: DC-01 TO HOME OR SELFCARE Time spent for discharge: 32 minutes - Discharge Diagnoses (1) Acute encephalopathy Status: Acute (2) Acute kidney injury Status: Acute (3) Alcoholic ketoacidosis Status: Acute (4) DVT prophylaxis Status: Acute (5) Hypokalemia Status: Acute Core Measure Documentation - Palliative Care Palliative Care/ Comfort Measures: Not Applicable - Core Measures Any of the following diagnoses?: none Exam - Constitutional Vitals: Temp Pulse Resp BP Pulse Ox 98.0 F 98 H 18 111/81 98 02/24/20 11:35 02/24/20 12:00 02/24/20 12:00 02/24/20 11:35 02/24/20 12:00 Plan Follow up with: ANH GLASS MD [Primary Care Provider] - 7 Days
[2020-02-24] MEDS ORDERED: POTASSIUM CHLORIDE ER 20 MEQ TAB PO ONE (17:42)
[2020-02-25] MEDS: SODIUM CHLORIDE 0.9% 1000 ML 1,000 ML IV SCH (06:09)
[2020-02-25] MEDS: HEPARIN 5,000 UNIT/1 ML VIAL SUB-Q SCH ×3 (06:10→22:52)
[2020-02-25 06:11] LABS: Hematocrit 29.2 % (35.5-45.6); Hemoglobin 9.9 gm/dl (11.8-15.2); Mean Corpuscular HGB Conc 34 % (32-34); Mean Corpuscular Volume 98 fl (84-94); Platelet Count 107 K/mm3 (140-440); Red Blood Count 2.97 M/mm3 (3.65-5.03); Red Cell Distribution Width 16.2 % (13.2-15.2)
[2020-02-25] MEDS: CEFEPIME/NS 2 GM/100 ML 2 GM/100 ML BAG IV SCH ×3 (06:16→23:37)
[2020-02-25 06:29] LABS: Alanine Aminotransferase 34 units/L (7-56); Albumin 2.3 g/dL (3.9-5); Blood Urea Nitrogen 10 mg/dL (9-20); Calcium 7.7 mg/dL (8.4-10.2); Hemolysis Index 4
[2020-02-25 06:38] LABS: BUN/Creatinine Ratio 25
[2020-02-25] MEDS ORDERED: LORazepam 2 MG/ML VIAL IV PRN (09:44)
--- NOTE | 2020-02-25 09:45 | Progress Note ---
Assessment and Plan - Patient Problems (1) Acute encephalopathy Current Visit: Yes Status: Acute Plan to address problem: Improved (2) Acute kidney injury Current Visit: Yes Status: Acute Plan to address problem: Improved (3) Alcoholic ketoacidosis Current Visit: Yes Status: Acute Plan to address problem: Improved (4) Hypokalemia Current Visit: Yes Status: Acute Plan to address problem: Supplemented (5) DVT prophylaxis Current Visit: Yes Status: Acute Plan to address problem: Heparin and GI prophylaxis Subjective Date of service: 02/24/20 Principal diagnosis: Acute encephalopathy, sepsis, paraplegia Interval history: 50-year-old male with known history of alcohol abuse presents to the emergency room today for evaluation of changes in mental status. Family members indicates that over the past 3 months he has been sent back home from work as he appeared depressed. His apartment was said to be disorganized and unkept. He has not been taking a shower and he has also had decreased oral intake over the past 1 week. Patient appeared tremulous and confused but was able to answer a few questions through an air bag curer. Work-up in the emergency room today reveals a leukocytosis of 18.6. CT of the chest, abdomen and pelvis were unremarkable. He had elevated lactic acid and elevated BUN and creatinine. Patient is being admitted for encephalopathy, acute kidney injury, lactic acidosis and possible alcohol withdrawal. Patient is still unable to lift both his legs Patient is very weak in both his legs Objective - Constitutional Vitals: Vital Signs - 12hr 02/24/20 02/25/20 23:12 03:28 Temperature 97.9 F 98.3 F Pulse Rate 106 H 96 H Respiratory 17 16 Rate Blood Pressure 111/84 105/67 O2 Sat by Pulse 97 97 Oximetry General appearance: Present: no acute distress, well-nourished - EENT Eyes: PERRL, EOM intact ENT: hearing intact, clear oral mucosa Ears: bilateral: normal - Neck Neck: supple, normal ROM - Respiratory Respiratory effort: normal Respiratory: bilateral: CTA - Breasts Breasts: normal - Cardiovascular Rhythm: regular Heart Sounds: Present: S1 & S2. Absent: gallop, rub Extremities: pulses intact, No edema, normal color, Full ROM - Gastrointestinal General gastrointestinal: Present: soft, non-tender, non-distended, normal bowel sounds - Genitourinary Male genitourinary: normal - Integumentary Integumentary: clear, warm, dry - Musculoskeletal Musculoskeletal: 1, strength equal bilaterally - Neurologic Neurologic: moves all extremities - Psychiatric Psychiatric: memory intact, appropriate mood/affect, intact judgment & insight - Labs CBC & Chem 7: 02/27/20 04:25 02/27/20 04:25 Labs: Abnormal lab results 02/25/20 02/25/20 Range/Units 05:27 05:27 WBC 11.8 H (4.5-11.0) K/mm3 RBC 2.97 L (3.65-5.03) M/mm3 Hgb 9.9 L (11.8-15.2) gm/dl Hct 29.2 L (35.5-45.6) % MCV 98 H (84-94) fl MCH 33 H (28-32) pg RDW 16.2 H (13.2-15.2) % Plt Count 107 L (140-440) K/mm3 Potassium 3.3 L (3.6-5.0) mmol/L Chloride 110.7 H (98-107) mmol/L Creatinine 0.4 L (0.8-1.3) mg/dL Calcium 7.7 L (8.4-10.2) mg/dL AST 74 H (5-40) units/L Total Creatine Kinase 353 H (55-170) units/L Total Protein 5.5 L (6.3-8.2) g/dL Albumin 2.3 L (3.9-5) g/dL HEART Score - HEART Score Troponin: Troponin T < 0.010 ng/mL (0.00-0.029) 02/22/20 18:13
[2020-02-25] MEDS: ONDANSETRON 4 MG/2 ML INJ IV PRN (22:57)
[2020-02-26] MEDS: CEFEPIME/NS 2 GM/100 ML 2 GM/100 ML BAG IV SCH ×4 (06:42→22:33)
[2020-02-26] MEDS: HEPARIN 5,000 UNIT/1 ML VIAL SUB-Q SCH ×3 (06:43→22:12)
[2020-02-26] MEDS: SODIUM CHLORIDE 0.9% 1000 ML 1,000 ML IV SCH ×2 (10:18→18:24)
--- NOTE | 2020-02-26 14:36 | Progress Note ---
Assessment and Plan - Patient Problems (1) Acute encephalopathy Current Visit: Yes Status: Acute Plan to address problem: Improved (2) Acute kidney injury Current Visit: Yes Status: Acute Plan to address problem: Improved (3) Alcoholic ketoacidosis Current Visit: Yes Status: Acute Plan to address problem: Improved (4) DVT prophylaxis Current Visit: Yes Status: Acute Plan to address problem: Heparin and GI prophylaxis (5) Hypokalemia Current Visit: Yes Status: Acute (6) Paraplegia Current Visit: Yes Status: Acute Plan to address problem: Work-up for both lower extremity weakness C-spine and L-spine MRI ordered. (7) Polyarthralgia Current Visit: Yes Status: Acute Plan to address problem: Work-up for rheumatoid arthritis gout and lupus. Sed rate CCP ARABELLA dsDNA ordered and rheumatoid factor ordered Subjective Date of service: 02/26/20 Principal diagnosis: Encephalopathy, RAFAEL, hypokalemia Interval history: 50-year-old male with known history of alcohol abuse presents to the emergency room today for evaluation of changes in mental status. Family members indicates that over the past 3 months he has been sent back home from work as he appeared depressed. His apartment was said to be disorganized and unkept. He has not been taking a shower and he has also had decreased oral intake over the past 1 week. Patient appeared tremulous and confused but was able to answer a few questions through an eligibility examiner. Work-up in the emergency room today reveals a leukocytosis of 18.6. CT of the chest, abdomen and pelvis were unremarkable. He had elevated lactic acid and elevated BUN and creatinine. Patient is being admitted for encephalopathy, acute kidney injury, lactic acidosis and possible alcohol withdrawal. Patient is still unable to lift both his legs Patient is very weak in both his legs Objective - Constitutional Vitals: Vital Signs - 12hr 02/26/20 02/26/20 02/26/20 04:40 07:29 08:00 Temperature 98.3 F 98.3 F Pulse Rate 96 H 100 H 100 H Respiratory 18 18 Rate Blood Pressure 103/76 113/76 O2 Sat by Pulse 97 98 Oximetry General appearance: Present: no acute distress, well-nourished - EENT Eyes: PERRL, EOM intact ENT: hearing intact, clear oral mucosa Ears: bilateral: normal - Neck Neck: supple, normal ROM - Respiratory Respiratory effort: normal Respiratory: bilateral: CTA - Breasts Breasts: normal - Cardiovascular Rhythm: regular Heart Sounds: Present: S1 & S2. Absent: gallop, rub Extremities: pulses intact, No edema, normal color, Full ROM - Gastrointestinal General gastrointestinal: Present: soft, non-tender, non-distended, normal bowel sounds - Genitourinary Male genitourinary: normal - Integumentary Integumentary: clear, warm, dry - Musculoskeletal Musculoskeletal: 1, strength equal bilaterally - Neurologic Neurologic: moves all extremities - Psychiatric Psychiatric: memory intact, appropriate mood/affect, intact judgment & insight - Labs CBC & Chem 7: 02/27/20 04:25 02/27/20 04:25 HEART Score - HEART Score Troponin: Troponin T < 0.010 ng/mL (0.00-0.029) 02/22/20 18:13
[2020-02-26] MEDS: methylPREDNISolone Sod Succinate 125 MG/2 ML INJ IV SCH ×2 (15:24→23:15)
[2020-02-26] MEDS: ONDANSETRON 4 MG/2 ML INJ IV PRN (18:29)
[2020-02-27 05:08] LABS: Hematocrit 30.8 % (35.5-45.6); Hemoglobin 10.7 gm/dl (11.8-15.2); Mean Corpuscular HGB Conc 35 % (32-34); Mean Corpuscular Volume 97 fl (84-94); Red Blood Count 3.18 M/mm3 (3.65-5.03); Red Cell Distribution Width 16.4 % (13.2-15.2)
[2020-02-27 05:09] LABS: Platelet Count 91 K/mm3 (140-440)
[2020-02-27 05:28] LABS: Alanine Aminotransferase 35 units/L (7-56); Albumin 2.5 g/dL (3.9-5); Blood Urea Nitrogen 12 mg/dL (9-20); Hemolysis Index 4
[2020-02-27 05:33] LABS: BUN/Creatinine Ratio 40
[2020-02-27] MEDS: CEFEPIME/NS 2 GM/100 ML 2 GM/100 ML BAG IV SCH (05:57)
[2020-02-27] MEDS: HEPARIN 5,000 UNIT/1 ML VIAL SUB-Q SCH ×3 (05:57→21:56)
[2020-02-27] MEDS: SODIUM CHLORIDE 0.9% 1000 ML 1,000 ML IV SCH ×3 (06:02→23:55)
[2020-02-27 07:58] LABS: Band Neutrophils # (Manual) 0.4 K/mm3; Basophils % (Manual) 0 % (0.0-1.8); Eosinophils % (Manual) 0 % (0.0-4.3); Monocytes % (Manual) 0 % (0.0-7.3); Total Cells Counted 100
[2020-02-27 07:59] LABS: Anisocytosis 1+; Hypochromasia Few; Macrocytosis Few; Platelet Estimate Consistent w Auto; Target Cells Rare
[2020-02-27] MEDS: methylPREDNISolone Sod Succinate 125 MG/2 ML INJ IV SCH ×3 (08:37→23:54)
--- NOTE | 2020-02-27 13:39 | Magnetic Resonance Report ---
MRI CERVICAL SPINE 02/27/2020 INDICATION / CLINICAL INFORMATION: MAIN. Neck pain. Paraplegia. Lower leg weakness. Technologist note: Patient motion, sequences repeated, best images possible. COMPARISON: None available. FINDINGS: GENERAL OBSERVATIONS: Unenhanced MR images of the cervical spine were obtained. Significant patient m otion artifact is present. There is no gross evidence of significant abnormality. There is no evidence of spinal cord compressio n or intrinsic spinal cord abnormality. Some mild diffuse disc bulging is present at the C5-6 and C6-7 levels, with no evidence of lateraliza tion. Subtle abnormalities of the disc and neural foramina may be obscured with this degree of motion artif act. CRANIO-CERVICAL JUNCTION: No definite abnormality. BONE MARROW: No definite abnormality. PARASPINAL SOFT TISSUES: No definite abnormality. IMPRESSION: Limited exam due to patient motion artifact. No evidence of spinal cord compression or intrinsic spi nal cord abnormality. Signer Name: Juan Francisco Cadena MD Signed: 02/27/2020 1:35 PM Workstation Name: [id number]
[2020-02-27] MEDS ORDERED: CEFEPIME/NS 2 GM/100 ML 2 GM/100 ML BAG IV SCH (14:00)
--- NOTE | 2020-02-27 15:45 | Consultation ---
History of Present Illness Consult date: 02/27/20 Reason for Consult: weakness History of present illness: Tele Neurology consult: The patient was admitted on 02/21, with ams, confusion, tremulous ad treated for ETOH withdrawal, sepsis. (.29, he was found that he cannot walk. though he is awake and alert. the admission note: 50-year-old male with known history of alcohol abuse presents to the emergency room today for evaluation of changes in mental status. Family members indicates that over the past 3 months he has been sent back home from work as he appeared depressed. His apartment was said to be disorganized and unkept. He has not been taking a shower and he has also had decreased oral intake over the past 1 week. Patient appeared tremulous and confused but was able to answer a few questions through an private branch exchange operator. Work-up in the emergency room today reveals a leukocytosis of 18.6. CT of the chest, abdomen and pelvis were unremarkable. He had elevated lactic acid and elevated BUN and creatinine. Patient is being admitted for encephalopathy, acute kidney injury, lactic acidosis and possible alcohol withdrawal. Past History Past Medical History: No medical history Past Surgical History: No surgical history Social history: smoking (Current daily smoker), alcohol abuse Family history: no significant family history Medications and Allergies Allergies Allergy/AdvReac Type Severity Reaction Status Date / Time No Known Allergies Allergy Unverified 02/22/20 18:14 Past History Past Medical History: No medical history Past Surgical History: No surgical history Social history: smoking (Current daily smoker), alcohol abuse Family history: no significant family history Medications and Allergies Allergies Allergy/AdvReac Type Severity Reaction Status Date / Time No Known Allergies Allergy Unverified 02/22/20 18:14 Home Medications Medication Instructions Recorded Confirmed Last Taken Type LORazepam [Ativan] 0.5 mg PO Q6H PRN 10 Days #24 02/24/20 Unknown Rx tablet Active Meds: Active Medications Heparin Sodium (Porcine) (Heparin) 5,000 unit SUB-Q Q8HR VINCENT Last Admin: 02/27/20 13:47 Dose: 5,000 unit Documented by: Sodium Chloride (Nacl 0.9% 1000 Ml) 1,000 mls @ 75 mls/hr IV DIRECT VINCENT Last Admin: 02/27/20 12:33 Dose: 125 mls/hr Documented by: Lorazepam (Ativan) 2 mg IV Q1H PRN PRN Reason: CIWA-Ar 8-15 Last Admin: 02/25/20 10:19 Dose: 2 mg Documented by: Magnesium Hydroxide (Milk Of Magnesia) 30 ml PO Q4H PRN PRN Reason: Constipation Methylprednisolone Sodium Succinate (Solu-Medrol) 60 mg IV Q8H [facility] Last Admin: 02/27/20 08:37 Dose: 60 mg Documented by: Ondansetron HCl (Zofran) 4 mg IV Q8H PRN PRN Reason: Nausea And Vomiting Last Admin: 02/26/20 18:29 Dose: 4 mg Documented by: Sodium Chloride (Sodium Chloride Flush Syringe 10 Ml) 10 ml IV BID [facility] Last Admin: 02/27/20 09:36 Dose: 10 ml Documented by: Sodium Chloride (Sodium Chloride Flush Syringe 10 Ml) 10 ml IV PRN PRN PRN Reason: LINE FLUSH Review of Systems All systems: negative (pain and weakness in limbs) Constitutional: weakness Physical Examination - Vital Signs Vital Signs: Vital Signs Pulse Ox 99 02/22/20 17:55 - Physical Exam Narrative exam: Neurology examination: does not speak macedonian. he is awake alert talking. he follows the commands . cn- eomi no facial asymmetry M- moves ue and lifts his arma up but may have weak applied researcher both hands. the patient not moving his legs. Dr. Freedman tried to move his legs, but seems to be painful on movement. the patient not bee able o tell where is the pain. it seems flaccid. Laboratory Results - last 72 hr 02/25/20 02/25/20 02/26/20 05:27 05:27 16:55 WBC 11.8 H RBC 2.97 L Hgb 9.9 L Hct 29.2 L MCV 98 H MCH 33 H MCHC 34 RDW 16.2 H Plt Count 107 L Add Manual Diff Total Counted Seg Neutrophils % Seg Neuts % (Manual) Band Neutrophils % Lymphocytes % (Manual) Reactive Lymphs % (Man) Monocytes % (Manual) Eosinophils % (Manual) Basophils % (Manual) Metamyelocytes % Myelocytes % Promyelocytes % Blast Cells % Nucleated RBC % Seg Neutrophils # Man Band Neutrophils # Lymphocytes # (Manual) Abs React Lymphs (Man) Monocytes # (Manual) Eosinophils # (Manual) Basophils # (Manual) Metamyelocytes # Myelocytes # Promyelocytes # Blast Cells # WBC Morphology Hypersegmented Neuts Hyposegmented Neuts Hypogranular Neuts Smudge Cells Toxic Granulation Toxic Vacuolation Dohle Bodies Pelger-Huet Anomaly Renetta Rods Platelet Estimate Clumped Platelets Plt Clumps, EDTA Large Platelets Giant Platelets Platelet Satelliting Plt Morphology Comment RBC Morphology Dimorphic RBCs Polychromasia Hypochromasia Poikilocytosis Anisocytosis Microcytosis Macrocytosis Spherocytes Pappenheimer Bodies Sickle Cells Target Cells Tear Drop Cells Ovalocytes Helmet Cells [place] Bodies [place] Rings Samuel Cells Bite Cells Crenated Cell Elliptocytes Acanthocytes (Spur) Rouleaux Hemoglobin C Crystals Schistocytes Malaria parasites ESR 39 [place] Bodies Hem Pathologist Commnt Sodium 142 Potassium 3.3 L Chloride 110.7 H Carbon Dioxide 22 Anion Gap 13 BUN 10 Creatinine 0.4 L Estimated GFR > 60 BUN/Creatinine Ratio 25 Glucose 98 Uric Acid Calcium 7.7 L Total Bilirubin 0.90 AST 74 H ALT 34 Alkaline Phosphatase 86 Total Creatine Kinase 353 H C-Reactive Protein Total Protein 5.5 L Albumin 2.3 L Albumin/Globulin Ratio 0.7 Rheumatoid Factor 02/26/20 02/26/20 02/26/20 16:55 16:55 16:55 WBC RBC Hgb Hct MCV MCH MCHC RDW Plt Count Add Manual Diff Total Counted Seg Neutrophils % Seg Neuts % (Manual) Band Neutrophils % Lymphocytes % (Manual) Reactive Lymphs % (Man) Monocytes % (Manual) Eosinophils % (Manual) Basophils % (Manual) Metamyelocytes % Myelocytes % Promyelocytes % Blast Cells % Nucleated RBC % Seg Neutrophils # Man Band Neutrophils # Lymphocytes # (Manual) Abs React Lymphs (Man) Monocytes # (Manual) Eosinophils # (Manual) Basophils # (Manual) Metamyelocytes # Myelocytes # Promyelocytes # Blast Cells # WBC Morphology Hypersegmented Neuts Hyposegmented Neuts Hypogranular Neuts Smudge Cells Toxic Granulation Toxic Vacuolation Dohle Bodies Pelger-Huet Anomaly Renetta Rods Platelet Estimate Clumped Platelets Plt Clumps, EDTA Large Platelets Giant Platelets Platelet Satelliting Plt Morphology Comment RBC Morphology Dimorphic RBCs Polychromasia Hypochromasia Poikilocytosis Anisocytosis Microcytosis Macrocytosis Spherocytes Pappenheimer Bodies Sickle Cells Target Cells Tear Drop Cells Ovalocytes Helmet Cells [place] Bodies [place] Samuel Cells Bite Cells Crenated Cell Elliptocytes Acanthocytes (Spur) Rouleaux Hemoglobin C Crystals Schistocytes Malaria parasites ESR [place] Bodies Hem Pathologist Commnt Sodium Potassium Chloride Carbon Dioxide Anion Gap BUN Creatinine Estimated GFR BUN/Creatinine Ratio Glucose Uric Acid 2.2 L Calcium Total Bilirubin AST ALT Alkaline Phosphatase Total Creatine Kinase C-Reactive Protein 6.40 H Total Protein Albumin Albumin/Globulin Ratio Rheumatoid Factor < 10 02/27/20 02/27/20 02/27/20 04:25 04:25 04:25 WBC 14.6 H RBC 3.18 L Hgb 10.7 L Hct 30.8 L MCV 97 H MCH 34 H MCHC 35 H RDW 16.4 H Plt Count 91 L Add Manual Diff Complete Total Counted 100 Seg Neutrophils % Ground Support Equipment Fitter Seg Neuts % (Manual) 93.0 H Band Neutrophils % 3.0 Lymphocytes % (Manual) 4.0 L Reactive Lymphs % (Man) 0 Monocytes % (Manual) 0 Eosinophils % (Manual) 0 Basophils % (Manual) 0 Metamyelocytes % 0 Myelocytes % 0 Promyelocytes % 0 Blast Cells % 0 Nucleated RBC % Not Reportable Seg Neutrophils # Man 13.6 H Band Neutrophils # 0.4 Lymphocytes # (Manual) 0.6 L Abs React Lymphs (Man) 0.0 Monocytes # (Manual) 0.0 Eosinophils # (Manual) 0.0 Basophils # (Manual) 0.0 Metamyelocytes # 0.0 Myelocytes # 0.0 Promyelocytes # 0.0 Blast Cells # 0.0 WBC Morphology Not Reportable Hypersegmented Neuts Not Reportable Hyposegmented Neuts Not Reportable Hypogranular Neuts Not Reportable Smudge Cells Not Reportable Toxic Granulation Not Reportable Toxic Vacuolation Not Reportable Dohle Bodies Not Reportable Pelger-Huet Anomaly Not Reportable Renetta Rods Not Reportable Platelet Estimate Consistent w auto Clumped Platelets Not Reportable Plt Clumps, EDTA Not Reportable Large Platelets Not Reportable Giant Platelets Not Reportable Platelet Satelliting Not Reportable Plt Morphology Comment Not Reportable RBC Morphology Not Reportable Dimorphic RBCs Not Reportable Polychromasia Not Reportable Hypochromasia Few Poikilocytosis Not Reportable Anisocytosis 1+ Microcytosis Not Reportable Macrocytosis Few Spherocytes Not Reportable Pappenheimer Bodies Not Reportable Sickle Cells Not Reportable Target Cells Rare Tear Drop Cells Not Reportable Ovalocytes Not Reportable Helmet Cells Not Reportable [place] Bodies Not Reportable [place] Not Reportable [place] Cells Not Reportable Bite Cells Not Reportable Crenated Cell Not Reportable Elliptocytes Not Reportable Acanthocytes (Spur) Not Reportable Rouleaux Not Reportable Hemoglobin C Crystals Not Reportable Schistocytes Not Reportable Malaria parasites Not Reportable ESR [place] Bodies Not Reportable Hem Pathologist Commnt No Sodium 137 Potassium 3.6 Chloride 104.5 Carbon Dioxide 22 Anion Gap 14 BUN 12 Creatinine 0.3 L Estimated GFR > 60 BUN/Creatinine Ratio 40 Glucose 149 H Uric Acid 1.9 L Calcium 8.0 L Total Bilirubin 0.80 AST 62 H ALT 35 Alkaline Phosphatase 98 Total Creatine Kinase C-Reactive Protein Total Protein 5.9 L Albumin 2.5 L Albumin/Globulin Ratio 0.7 Rheumatoid Factor Results - Laboratory Findings CBC and BMP: 02/27/20 04:25 02/27/20 04:25 Abnormal Lab Findings: Abnormal Labs 02/22/20 02/22/20 02/22/20 18:08 18:13 18:13 WBC 18.6 H RBC Hgb Hct MCV 98 H MCH MCHC RDW 16.3 H Plt Count Lymph % (Auto) 7.7 L [place] # (Auto) 1.0 H Seg Neutrophils % 86.6 H Seg Neuts % (Manual) Lymphocytes % (Manual) Seg Neutrophils # 16.1 H Seg Neutrophils # Man Lymphocytes # (Manual) PT 15.3 H INR 1.19 H Sodium Potassium Chloride Carbon Dioxide BUN Creatinine Glucose POC Glucose 149 H Lactic Acid Uric Acid Calcium Phosphorus Total Bilirubin AST Total Creatine Kinase C-Reactive Protein Total Protein Albumin Salicylates Acetaminophen 02/22/20 02/22/20 02/22/20 18:13 18:13 18:13 WBC RBC Hgb Hct MCV MCH MCHC RDW Plt Count Lymph % (Auto) [place] # (Auto) Seg Neutrophils % Seg Neuts % (Manual) Lymphocytes % (Manual) Seg Neutrophils # Seg Neutrophils # Man Lymphocytes # (Manual) PT INR Sodium 130 L Potassium 3.1 L Chloride 92.4 L Carbon Dioxide 15 L BUN 32 H Creatinine 0.7 L Glucose 156 H POC Glucose Lactic Acid 4.70 H* Uric Acid Calcium Phosphorus Total Bilirubin 2.10 H AST 97 H Total Creatine Kinase 759 H C-Reactive Protein Total Protein Albumin 3.2 L Salicylates < 0.3 L Acetaminophen 02/22/20 02/22/20 02/23/20 18:13 19:25 00:25 WBC RBC Hgb Hct MCV MCH MCHC RDW Plt Count Lymph % (Auto) [place] # (Auto) Seg Neutrophils % Seg Neuts % (Manual) Lymphocytes % (Manual) Seg Neutrophils # Seg Neutrophils # Man Lymphocytes # (Manual) PT INR Sodium Potassium Chloride Carbon Dioxide BUN Creatinine Glucose POC Glucose Lactic Acid 3.80 H* 3.60 H* Uric Acid Calcium Phosphorus Total Bilirubin AST Total Creatine Kinase C-Reactive Protein Total Protein Albumin Salicylates Acetaminophen 5.0 L 02/23/20 02/23/20 02/23/20 00:25 07:41 07:41 WBC 13.6 H RBC 3.23 L Hgb 10.7 L Hct 31.4 L D MCV 97 H MCH 33 H MCHC RDW 15.9 H Plt Count Lymph % (Auto) 9.4 L [place] # (Auto) Seg Neutrophils % 83.2 H Seg Neuts % (Manual) Lymphocytes % (Manual) Seg Neutrophils # 11.3 H Seg Neutrophils # Man Lymphocytes # (Manual) PT 16.6 H INR 1.33 H Sodium Potassium Chloride Carbon Dioxide BUN Creatinine Glucose POC Glucose Lactic Acid Uric Acid Calcium Phosphorus 2.20 L Total Bilirubin AST Total Creatine Kinase C-Reactive Protein Total Protein Albumin Salicylates Acetaminophen 02/23/20 02/23/20 02/23/20 07:41 07:41 09:08 WBC RBC Hgb Hct MCV MCH MCHC RDW Plt Count Lymph % (Auto) [place] # (Auto) Seg Neutrophils % Seg Neuts % (Manual) Lymphocytes % (Manual) Seg Neutrophils # Seg Neutrophils # Man Lymphocytes # (Manual) PT INR Sodium Potassium 2.9 L* Chloride Carbon Dioxide BUN Creatinine 0.4 L Glucose 114 H POC Glucose Lactic Acid 2.10 H* 2.30 H* Uric Acid Calcium 7.7 L Phosphorus Total Bilirubin AST Total Creatine Kinase C-Reactive Protein Total Protein Albumin Salicylates Acetaminophen 02/23/20 02/23/20 02/23/20 10:03 13:37 18:00 WBC RBC Hgb Hct MCV MCH MCHC RDW Plt Count Lymph % (Auto) [place] # (Auto) Seg Neutrophils % Seg Neuts % (Manual) Lymphocytes % (Manual) Seg Neutrophils # Seg Neutrophils # Man Lymphocytes # (Manual) PT INR Sodium Potassium Chloride Carbon Dioxide BUN Creatinine Glucose POC Glucose Lactic Acid 2.30 H* 3.70 H* 2.80 H* Uric Acid Calcium Phosphorus Total Bilirubin AST Total Creatine Kinase C-Reactive Protein Total Protein Albumin Salicylates Acetaminophen 02/24/20 02/24/20 02/24/20 07:15 07:15 07:15 WBC 11.2 H RBC 2.96 L Hgb 9.8 L Hct 29.1 L MCV 98 H MCH 33 H MCHC RDW 16.0 H Plt Count 119 L Lymph % (Auto) [place] # (Auto) Seg Neutrophils % Seg Neuts % (Manual) Lymphocytes % (Manual) Seg Neutrophils # Seg Neutrophils # Man Lymphocytes # (Manual) PT INR Sodium Potassium 3.5 L D Chloride 111.6 H Carbon Dioxide BUN Creatinine 0.4 L Glucose 109 H POC Glucose Lactic Acid Uric Acid Calcium 7.7 L Phosphorus Total Bilirubin AST 67 H Total Creatine Kinase 265 H C-Reactive Protein Total Protein 5.5 L D Albumin 2.5 L Salicylates Acetaminophen 02/25/20 02/25/20 02/26/20 05:27 05:27 16:55 WBC 11.8 H RBC 2.97 L Hgb 9.9 L Hct 29.2 L MCV 98 H MCH 33 H MCHC RDW 16.2 H Plt Count 107 L Lymph % (Auto) [place] # (Auto) Seg Neutrophils % Seg Neuts % (Manual) Lymphocytes % (Manual) Seg Neutrophils # Seg Neutrophils # Man Lymphocytes # (Manual) PT INR Sodium Potassium 3.3 L Chloride 110.7 H Carbon Dioxide BUN Creatinine 0.4 L Glucose POC Glucose Lactic Acid Uric Acid Calcium 7.7 L Phosphorus Total Bilirubin AST 74 H Total Creatine Kinase 353 H C-Reactive Protein 6.40 H Total Protein 5.5 L Albumin 2.3 L Salicylates Acetaminophen 02/26/20 02/27/20 02/27/20 16:55 04:25 04:25 WBC 14.6 H RBC 3.18 L Hgb 10.7 L Hct 30.8 L MCV 97 H MCH 34 H MCHC 35 H RDW 16.4 H Plt Count 91 L Lymph % (Auto) [place] # (Auto) Seg Neutrophils % Seg Neuts % (Manual) 93.0 H Lymphocytes % (Manual) 4.0 L Seg Neutrophils # Seg Neutrophils # Man 13.6 H Lymphocytes # (Manual) 0.6 L PT INR Sodium Potassium Chloride Carbon Dioxide BUN Creatinine 0.3 L Glucose 149 H POC Glucose Lactic Acid Uric Acid 2.2 L Calcium 8.0 L Phosphorus Total Bilirubin AST 62 H Total Creatine Kinase C-Reactive Protein Total Protein 5.9 L Albumin 2.5 L Salicylates Acetaminophen 02/27/20 04:25 WBC RBC Hgb Hct MCV MCH MCHC RDW Plt Count Lymph % (Auto) [place] # (Auto) Seg Neutrophils % Seg Neuts % (Manual) Lymphocytes % (Manual) Seg Neutrophils # Seg Neutrophils # Man Lymphocytes # (Manual) PT INR Sodium Potassium Chloride Carbon Dioxide BUN Creatinine Glucose POC Glucose Lactic Acid Uric Acid 1.9 L Calcium Phosphorus Total Bilirubin AST Total Creatine Kinase C-Reactive Protein Total Protein Albumin Salicylates Acetaminophen Assessment and Plan 1- rule out GBS, until proven otherwise. also possible myositis. ck 02/23- 276 and 02/24- 353- not that high though. ----a repeat ck will be done. MRI l/s - unremarkable. MRI c- spine- limited by movement artifact, but does not seems that the cord been compromised. ---plan to have the LP ( Dr. Freedman is going to order LP and blood tests ). CSF for cell count with differentia, glucose, protein. if there is albuminocytologic dissociation, then would need to start IvIgG. a repeat ck will be done, aldolase. 2- Alcohol withdrawal- resolved. thanks.
--- NOTE | 2020-02-27 16:37 | Magnetic Resonance Report ---
MRI LUMBAR SPINE 02/27/2020 INDICATION / CLINICAL INFORMATION: Paraplegia. Lower leg weakness.. COMPARISON: None available. FINDINGS: GENERAL OBSERVATIONS: Unenhanced MR images of the lumbar spine demonstrate no evidence of significant abnormality. Vertebral body height and alignment is well preserved at all levels. Disc profiles are well-preserved at all levels, with no evidence of disc herniation or nerve root com pression. BONE MARROW: No significant abnormality. 1.5 cm hemangioma present at L2, generally considered to be of no clinical significance. SPINAL CORD/CAUDA EQUINA: Unremarkable PARASPINAL SOFT TISSUES: No significant abnormality. IMPRESSION: No significant abnormality. Signer Name: Juan Francisco Cadena MD Signed: 02/27/2020 4:33 PM Workstation Name: [email or web address]
[2020-02-28] MEDS: HEPARIN 5,000 UNIT/1 ML VIAL SUB-Q SCH ×3 (05:47→21:18)
[2020-02-28] MEDS: SODIUM CHLORIDE 0.9% 1000 ML 1,000 ML IV SCH ×2 (05:48→19:22)
[2020-02-28] MEDS: methylPREDNISolone Sod Succinate 125 MG/2 ML INJ IV SCH ×2 (08:19→16:55)
--- NOTE | 2020-02-28 12:01 | Progress Note ---
Assessment and Plan - Patient Problems (1) Acute encephalopathy Current Visit: Yes Status: Acute Plan to address problem: Improved (2) Acute kidney injury Current Visit: Yes Status: Acute Plan to address problem: Improved (3) Alcoholic ketoacidosis Current Visit: Yes Status: Acute Plan to address problem: Improved (4) Hypokalemia Current Visit: Yes Status: Acute (5) Paraplegia Current Visit: Yes Status: Acute Plan to address problem: Work-up for both lower extremity weakness C-spine and L-spine MRI normal (6) Polyarthralgia Current Visit: Yes Status: Acute Plan to address problem: Work-up for rheumatoid arthritis gout and lupus. Sed rate CCP ARABELLA dsDNA ordered and rheumatoid factor ordered (7) DVT prophylaxis Current Visit: Yes Status: Acute Plan to address problem: Heparin and GI prophylaxis Subjective Date of service: 02/27/20 Principal diagnosis: Paraplegia COVID-19 positive test (U07.1, COVID-19) with Viral Sepsis (A4 Interval history: 50-year-old male with known history of alcohol abuse presents to the emergency room today for evaluation of changes in mental status. Family members indicates that over the past 3 months he has been sent back home from work as he appeared depressed. His apartment was said to be disorganized and unkept. He has not been taking a shower and he has also had decreased oral intake over the past 1 week. Patient appeared tremulous and confused but was able to answer a few questions through an lapel padder. Work-up in the emergency room today reveals a leukocytosis of 18.6. CT of the chest, abdomen and pelvis were unremarkable. He had elevated lactic acid and elevated BUN and creatinine. Patient is being admitted for encephalopathy, acute kidney injury, lactic acidosis and possible alcohol withdrawal. Patient is still unable to lift both his legs Objective - Constitutional Vitals: Vital Signs - 12hr 02/28/20 02/28/20 02/28/20 00:00 03:42 07:28 Temperature 97.3 F L 97.7 F Pulse Rate 78 82 96 H Respiratory 16 18 Rate Blood Pressure 122/87 118/80 O2 Sat by Pulse 97 94 Oximetry 02/28/20 02/28/20 08:29 11:41 Temperature 97.6 F Pulse Rate 96 H Respiratory 18 18 Rate Blood Pressure 126/90 O2 Sat by Pulse 96 97 Oximetry General appearance: Present: no acute distress, well-nourished - EENT Eyes: PERRL, EOM intact ENT: hearing intact, clear oral mucosa Ears: bilateral: normal - Neck Neck: supple, normal ROM - Respiratory Respiratory effort: normal Respiratory: bilateral: CTA - Breasts Breasts: normal - Cardiovascular Heart rate: 78 Rhythm: regular Heart Sounds: Present: S1 & S2. Absent: gallop, rub Extremities: pulses intact, No edema, normal color, Full ROM, abnormal - Gastrointestinal General gastrointestinal: Present: soft, non-tender, non-distended, normal bowel sounds - Genitourinary Male genitourinary: normal - Integumentary Integumentary: clear, warm, dry - Musculoskeletal Musculoskeletal: 1, strength equal bilaterally - Neurologic Neurologic: moves all extremities - Psychiatric Psychiatric: memory intact, appropriate mood/affect, intact judgment & insight - Labs CBC & Chem 7: 02/27/20 04:25 02/27/20 04:25 Labs: Abnormal lab results 02/27/20 Range/Units 04:25 Uric Acid 1.9 L (3.5-7.6) mg/dL MRI LS spine No significant abnormality MRI C-spine Impression Limited exam due to patient motion artifact. No evidence of spinal cord compression. HEART Score - HEART Score Troponin: Troponin T < 0.010 ng/mL (0.00-0.029) 02/22/20 18:13
--- NOTE | 2020-02-28 12:05 | Progress Note ---
Assessment and Plan - Patient Problems (1) Acute encephalopathy Current Visit: Yes Status: Acute Plan to address problem: Improved (2) Acute kidney injury Current Visit: Yes Status: Acute Plan to address problem: Improved (3) Alcoholic ketoacidosis Current Visit: Yes Status: Acute Plan to address problem: Improved (4) Hypokalemia Current Visit: Yes Status: Acute Plan to address problem: Supplemented (5) Paraplegia Current Visit: Yes Status: Acute Plan to address problem: Work-up for both lower extremity weakness C-spine and L-spine MRI normal (6) Polyarthralgia Current Visit: Yes Status: Acute Plan to address problem: Work-up for rheumatoid arthritis gout and lupus. Sed rate CCP ARABELLA dsDNA ordered and rheumatoid factor ordered (7) DVT prophylaxis Current Visit: Yes Status: Acute Plan to address problem: Heparin and GI prophylaxis Subjective Date of service: 02/27/20 Principal diagnosis: Paraplegia COVID-19 positive test (U07.1, COVID-19) with Viral Sepsis (A4 Interval history: 50-year-old male with known history of alcohol abuse presents to the emergency room today for evaluation of changes in mental status. Family members indicates that over the past 3 months he has been sent back home from work as he appeared depressed. His apartment was said to be disorganized and unkept. He has not been taking a shower and he has also had decreased oral intake over the past 1 week. Patient appeared tremulous and confused but was able to answer a few questions through an public health staff nurse. Work-up in the emergency room today reveals a leukocytosis of 18.6. CT of the chest, abdomen and pelvis were unremarkable. He had elevated lactic acid and elevated BUN and creatinine. Patient is being admitted for encephalopathy, acute kidney injury, lactic acidosis and possible alcohol withdrawal. Patient is still unable to lift both his legs Objective - Constitutional Vitals: Vital Signs - 12hr 02/28/20 02/28/20 02/28/20 03:42 07:28 08:29 Temperature 97.3 F L 97.7 F Pulse Rate 82 96 H Respiratory 16 18 18 Rate Blood Pressure 122/87 118/80 O2 Sat by Pulse 97 94 96 Oximetry 02/28/20 11:41 Temperature 97.6 F Pulse Rate 96 H Respiratory 18 Rate Blood Pressure 126/90 O2 Sat by Pulse 97 Oximetry General appearance: Present: no acute distress, well-nourished - EENT Eyes: PERRL, EOM intact ENT: hearing intact, clear oral mucosa Ears: bilateral: normal - Neck Neck: supple, normal ROM - Respiratory Respiratory effort: normal Respiratory: bilateral: CTA - Breasts Breasts: normal - Cardiovascular Heart rate: 78 Rhythm: regular Heart Sounds: Present: S1 & S2. Absent: gallop, rub Extremities: pulses intact, No edema, normal color Extremity abnormal: other (Unable to lift his legs) - Gastrointestinal General gastrointestinal: Present: soft, non-tender, non-distended, normal bowel sounds - Genitourinary Male genitourinary: normal - Integumentary Integumentary: clear, warm, dry - Musculoskeletal Musculoskeletal: 1, strength equal bilaterally - Neurologic Neurologic: moves all extremities - Psychiatric Psychiatric: memory intact, appropriate mood/affect, intact judgment & insight - Labs CBC & Chem 7: 02/27/20 04:25 02/27/20 04:25 Labs: Abnormal lab results 02/27/20 Range/Units 04:25 Uric Acid 1.9 L (3.5-7.6) mg/dL HEART Score - HEART Score Troponin: Troponin T < 0.010 ng/mL (0.00-0.029) 02/22/20 18:13
--- NOTE | 2020-02-28 12:11 | Progress Note ---
Assessment and Plan - Patient Problems (1) Acute encephalopathy Current Visit: Yes Status: Acute Plan to address problem: Improved (2) Acute kidney injury Current Visit: Yes Status: Acute Plan to address problem: Improved (3) Alcoholic ketoacidosis Current Visit: Yes Status: Acute Plan to address problem: Improved (4) Hypokalemia Current Visit: Yes Status: Acute (5) Paraplegia Current Visit: Yes Status: Acute Plan to address problem: Work-up for both lower extremity weakness C-spine and L-spine MRI ordered. (6) Polyarthralgia Current Visit: Yes Status: Acute Plan to address problem: Work-up for rheumatoid arthritis gout and lupus. Sed rate CCP ARABELLA dsDNA ordered and rheumatoid factor ordered (7) DVT prophylaxis Current Visit: Yes Status: Acute Plan to address problem: Heparin and GI prophylaxis Subjective Date of service: 02/25/20 Principal diagnosis: Encephalopathy, RAFAEL, hypokalemia Interval history: 50-year-old male with known history of alcohol abuse presents to the emergency room today for evaluation of changes in mental status. Family members indicates that over the past 3 months he has been sent back home from work as he appeared depressed. His apartment was said to be disorganized and unkept. He has not been taking a shower and he has also had decreased oral intake over the past 1 week. Patient appeared tremulous and confused but was able to answer a few questions through an controls project engineer. Work-up in the emergency room today reveals a leukocytosis of 18.6. CT of the chest, abdomen and pelvis were unremarkable. He had elevated lactic acid and elevated BUN and creatinine. Patient is being admitted for encephalopathy, acute kidney injury, lactic acidosis and possible alcohol withdrawal. Patient is still unable to lift both his legs Patient is very weak in both his legs Objective - Constitutional Vitals: Vital Signs - 12hr 02/28/20 02/28/20 02/28/20 03:42 07:28 08:29 Temperature 97.3 F L 97.7 F Pulse Rate 82 96 H Respiratory 16 18 18 Rate Blood Pressure 122/87 118/80 O2 Sat by Pulse 97 94 96 Oximetry 02/28/20 11:41 Temperature 97.6 F Pulse Rate 96 H Respiratory 18 Rate Blood Pressure 126/90 O2 Sat by Pulse 97 Oximetry General appearance: Present: no acute distress, well-nourished - EENT Eyes: PERRL, EOM intact ENT: hearing intact, clear oral mucosa Ears: bilateral: normal - Neck Neck: supple, normal ROM - Respiratory Respiratory effort: normal Respiratory: bilateral: CTA - Breasts Breasts: normal - Cardiovascular Heart rate: 78 Rhythm: regular Heart Sounds: Present: S1 & S2. Absent: gallop, rub Extremities: pulses intact, No edema, normal color, Full ROM Extremity abnormal: other (Unable to lift both the legs) - Gastrointestinal General gastrointestinal: Present: soft, non-tender, non-distended, normal bowel sounds - Genitourinary Male genitourinary: normal - Integumentary Integumentary: clear, warm, dry - Musculoskeletal Musculoskeletal: 1, strength equal bilaterally - Neurologic Neurologic: moves all extremities - Psychiatric Psychiatric: memory intact, appropriate mood/affect, intact judgment & insight - Labs CBC & Chem 7: 02/27/20 04:25 02/27/20 04:25 Labs: Abnormal lab results 02/27/20 Range/Units 04:25 Uric Acid 1.9 L (3.5-7.6) mg/dL HEART Score - HEART Score Troponin: Troponin T < 0.010 ng/mL (0.00-0.029) 02/22/20 18:13
[2020-02-28] MEDS: cefTRIAXone/NS 2 GM/100 ML 2 GM/100 ML BAG IV SCH (13:49)
[2020-02-29] MEDS: methylPREDNISolone Sod Succinate 125 MG/2 ML INJ IV SCH ×3 (00:12→16:00)
[2020-02-29] MEDS: HEPARIN 5,000 UNIT/1 ML VIAL SUB-Q SCH ×3 (06:06→22:09)
[2020-02-29] MEDS: SODIUM CHLORIDE 0.9% 1000 ML 1,000 ML IV SCH (06:29)
[2020-02-29] MEDS: cefTRIAXone/NS 2 GM/100 ML 2 GM/100 ML BAG IV SCH (14:00)
[2020-02-29] MEDS: ONDANSETRON 4 MG/2 ML INJ IV PRN (18:42)
--- NOTE | 2020-02-29 22:06 | Progress Note ---
Assessment and Plan - Patient Problems (1) Acute encephalopathy Current Visit: Yes Status: Acute Plan to address problem: Improved (2) Acute kidney injury Current Visit: Yes Status: Acute Plan to address problem: Improved (3) Alcoholic ketoacidosis Current Visit: Yes Status: Acute Plan to address problem: Improved (4) Hypokalemia Current Visit: Yes Status: Acute Plan to address problem: Supplemented (5) Paraplegia Current Visit: Yes Status: Acute Plan to address problem: Work-up for both lower extremity weakness C-spine and L-spine MRI ordered. (6) Polyarthralgia Current Visit: Yes Status: Acute Plan to address problem: Work-up for rheumatoid arthritis gout and lupus. Sed rate CCP ARABELLA dsDNA ordered and rheumatoid factor ordered (7) DVT prophylaxis Current Visit: Yes Status: Acute Plan to address problem: Heparin and GI prophylaxis Subjective Date of service: 02/29/20 Principal diagnosis: Encephalopathy, RAFAEL, hypokalemia Interval history: 50-year-old male with known history of alcohol abuse presents to the emergency room today for evaluation of changes in mental status. Family members indicates that over the past 3 months he has been sent back home from work as he appeared depressed. His apartment was said to be disorganized and unkept. He has not been taking a shower and he has also had decreased oral intake over the past 1 week. Patient appeared tremulous and confused but was able to answer a few questions through an sports complex attendant. Work-up in the emergency room today reveals a leukocytosis of 18.6. CT of the chest, abdomen and pelvis were unremarkable. He had elevated lactic acid and elevated BUN and creatinine. Patient is being admitted for encephalopathy, acute kidney injury, lactic acidosis and possible alcohol withdrawal. Patient is still unable to lift both his legs Patient is very weak in both his legs 02/29/2020 patient continues to be weak in both lower extremities Objective - Constitutional Vitals: Vital Signs - 12hr 02/29/20 02/29/20 02/29/20 11:34 15:51 17:00 Temperature 98.6 F Pulse Rate 99 H 107 H 101 H Respiratory 18 Rate Blood Pressure 113/81 111/77 O2 Sat by Pulse 98 94 Oximetry 02/29/20 19:07 Temperature 99.5 F Pulse Rate 117 H Respiratory 16 Rate Blood Pressure 121/84 O2 Sat by Pulse 91 Oximetry General appearance: Present: no acute distress, well-nourished - EENT Eyes: PERRL, EOM intact ENT: hearing intact, clear oral mucosa Ears: bilateral: normal - Neck Neck: supple, normal ROM - Respiratory Respiratory effort: normal Respiratory: bilateral: CTA - Breasts Breasts: normal - Cardiovascular Heart rate: 78 Rhythm: regular Heart Sounds: Present: S1 & S2. Absent: gallop, rub Extremities: pulses intact, No edema, normal color, Full ROM Extremity abnormal: other (Both the joints are tender and painful with decreased range of motion) - Gastrointestinal General gastrointestinal: Present: soft, non-tender, non-distended, normal bowel sounds - Genitourinary Male genitourinary: normal - Integumentary Integumentary: clear, warm, dry - Musculoskeletal Musculoskeletal: 1, strength equal bilaterally - Neurologic Neurologic: moves all extremities - Psychiatric Psychiatric: memory intact, appropriate mood/affect, intact judgment & insight - Labs CBC & Chem 7: 02/27/20 04:25 02/27/20 04:25 HEART Score - HEART Score Troponin: Troponin T < 0.010 ng/mL (0.00-0.029) 02/22/20 18:13
[2020-03-01] MEDS: methylPREDNISolone Sod Succinate 125 MG/2 ML INJ IV SCH ×3 (00:10→18:53)
[2020-03-01] MEDS: HEPARIN 5,000 UNIT/1 ML VIAL SUB-Q SCH ×3 (05:35→21:21)
[2020-03-01] MEDS: SODIUM CHLORIDE 0.9% 1000 ML 1,000 ML IV SCH (11:46)
[2020-03-01 14:45] LABS: INR 1.33 (0.87-1.13)
[2020-03-01 14:46] LABS: Partial Thromboplastin Time 44.5 Sec. (24.2-36.6)
[2020-03-01] MEDS: cefTRIAXone/NS 2 GM/100 ML 2 GM/100 ML BAG IV SCH (15:00)
[2020-03-02] MEDS: SODIUM CHLORIDE 0.9% 1000 ML 1,000 ML IV SCH (00:25)
[2020-03-02] MEDS: methylPREDNISolone Sod Succinate 125 MG/2 ML INJ IV SCH ×3 (00:25→17:47)
[2020-03-02] MEDS: HEPARIN 5,000 UNIT/1 ML VIAL SUB-Q SCH (06:13)
--- NOTE | 2020-03-02 07:10 | Progress Note ---
Assessment and Plan - Patient Problems (1) Acute encephalopathy Current Visit: Yes Status: Acute Plan to address problem: Improved (2) Acute kidney injury Current Visit: Yes Status: Acute Plan to address problem: Improved (3) Alcoholic ketoacidosis Current Visit: Yes Status: Acute Plan to address problem: Improved (4) Hypokalemia Current Visit: Yes Status: Acute Plan to address problem: Supplemented (5) Paraplegia Current Visit: Yes Status: Acute Plan to address problem: Work-up for both lower extremity weakness C-spine and L-spine MRI normal Lumbar puncture to be done today Neurology to be consulted Possible transverse myelitis (6) Polyarthralgia Current Visit: Yes Status: Acute Plan to address problem: Work-up for rheumatoid arthritis gout and lupus. Sed rate CCP ARABELLA dsDNA ordered and rheumatoid factor ordered Rheumatoid factor negative Patient has painful knees Myositis ruled out (7) DVT prophylaxis Current Visit: Yes Status: Acute Plan to address problem: Heparin stopped because of low platelet count (8) Discharge planning issues Current Visit: Yes Status: Acute Plan to address problem: Discharge to residential facility for rehab. Patient is unfunded Subjective Date of service: 03/01/20 Principal diagnosis: Encephalopathy, RAFAEL, hypokalemia Interval history: 50-year-old male with known history of alcohol abuse presents to the emergency room today for evaluation of changes in mental status. Family members indicates that over the past 3 months he has been sent back home from work as he appeared depressed. His apartment was said to be disorganized and unkept. He has not been taking a shower and he has also had decreased oral intake over the past 1 week. Patient appeared tremulous and confused but was able to answer a few questions through an inspector missile. Work-up in the emergency room today reveals a leukocytosis of 18.6. CT of the chest, abdomen and pelvis were unremarkable. He had elevated lactic acid and elevated BUN and creatinine. Patient is being admitted for encephalopathy, acute kidney injury, lactic acidosis and possible alcohol withdrawal. Patient is still unable to lift both his legs Patient is very weak in both his legs 02/29/2020 patient continues to be weak in both lower extremities 03/01/2020 patient still weak in both lower extremities. Creatinine kinase was normal patient for lumbar puncture today. Neurology to be reconsulted. Objective - Constitutional Vitals: Vital Signs - 12hr 03/01/20 03/01/20 03/02/20 19:11 23:32 04:06 Temperature 98.6 F 99.7 F H 97.9 F Pulse Rate 97 H 96 H 87 Respiratory 16 20 16 Rate Blood Pressure 110/67 124/78 117/79 O2 Sat by Pulse 98 94 93 Oximetry General appearance: Present: no acute distress, well-nourished - EENT Eyes: PERRL, EOM intact ENT: hearing intact, clear oral mucosa Ears: bilateral: normal - Neck Neck: supple, normal ROM - Respiratory Respiratory effort: normal Respiratory: bilateral: CTA - Breasts Breasts: normal - Cardiovascular Heart rate: 78 Rhythm: regular Heart Sounds: Present: S1 & S2. Absent: gallop, rub Extremities: pulses intact, No edema, normal color, Full ROM, abnormal (Paraplegia) - Gastrointestinal General gastrointestinal: Present: soft, non-tender, non-distended, normal bowel sounds - Genitourinary Male genitourinary: normal - Integumentary Integumentary: clear, warm, dry - Musculoskeletal Musculoskeletal: generalized weakness, other (Paraplegia) - Neurologic Neurologic: moves all extremities - Psychiatric Psychiatric: memory intact, appropriate mood/affect, intact judgment & insight - Allied health notes Allied health notes reviewed: nursing, social work, case management - Labs CBC & Chem 7: 03/01/20 14:18 02/27/20 04:25 Labs: Abnormal lab results 03/01/20 03/01/20 Range/Units 14:18 14:18 Plt Count 133 L (140-440) K/mm3 PT 16.8 H (12.2-14.9) Sec. INR 1.33 H (0.87-1.13) APTT 44.5 H (24.2-36.6) Sec. HEART Score - HEART Score Troponin: Troponin T < 0.010 ng/mL (0.00-0.029) 02/22/20 18:13
--- NOTE | 2020-03-02 08:17 | Progress Note ---
Assessment and Plan Assessment and plan: (1) Acute encephalopathy Current Visit: Yes Status: Acute Plan to address problem: Improved (2) Acute kidney injury Current Visit: Yes Status: Acute Plan to address problem: Improved (3) Alcoholic ketoacidosis Current Visit: Yes Status: Acute Plan to address problem: Improved (4) Hypokalemia Current Visit: Yes Status: Acute Plan to address problem: Supplemented (5) Paraplegia Current Visit: Yes Status: Acute Plan to address problem: Work-up for both lower extremity weakness C-spine and L-spine MRI normal Lumbar puncture to be done tomorrow, appropriate labs ordered Neurology consult appreciated Possible transverse myelitis; patient is on steroid (6) Polyarthralgia Current Visit: Yes Status: Acute Plan to address problem: Work-up for rheumatoid arthritis gout and lupus. Sed rate CCP ARABELLA dsDNA ordered and rheumatoid factor ordered Rheumatoid factor negative Patient has painful knees Myositis ruled out (7) DVT prophylaxis Current Visit: Yes Status: Acute Plan to address problem: Heparin stopped because of low platelet count (8) Discharge planning issues Current Visit: Yes Status: Acute Plan to address problem: Discharge to long-term facility for rehab. Patient is unfunded Short history 50-year-old male with known history of alcohol abuse presents to the emergency room today for evaluation of changes in mental status. Family members indicates that over the past 3 months he has been sent back home from work as he appeared depressed. His apartment was said to be disorganized and unkept. He has not been taking a shower and he has also had decreased oral intake over the past 1 week. Patient appeared tremulous and confused but was able to answer a few questions through an parts casting machine operator. Work-up in the emergency room today reveals a leukocytosis of 18.6. CT of the chest, abdomen and pelvis were unremarkable. He had elevated lactic acid and elevated BUN and creatinine. Patient is being admitted for encephalopathy, acute kidney injury, lactic acidosis and possible alcohol withdrawal. Patient is still unable to lift both his legs Patient is very weak in both his legs 02/29/2020 patient continues to be weak in both lower extremities 03/01/2020 patient still weak in both lower extremities. Creatinine kinase was normal patient for lumbar puncture today. Neurology to be reconsulted. 03/02/2020; still weakness of both lower extremities. Patient is going to have LP tomorrow. Patient was confused, I used ichthyologist to talk with him. patient has elevated INR and thrombocytopenia yesterday. Will repeat tomorrow History Interval history: Patient was seen and evaluated this morning I tried to talk to the patient using ichthyologist. Per the parts casting machine operator patient is confused and does not make sense. Patient does not follow commands. Hospitalist Physical - Physical exam Narrative exam: Patient is confused Not in cardiopulmonary distress. The patient appeared well nourished and normally developed. Vital signs as documented. Head exam is unremarkable. No scleral icterus . Neck is without jugular venous distension, thyromegaly, or carotid bruits. Lungs are clear to auscultation. Cardiac exam reveals regular rate and Rhythm. Abdominal exam reveals normal bowel sounds, nontender, no organomegaly. Extremities are nonedematous and both femoral and pedal pulses are normal. THERMAL CUTTER HAND: Patient does not follow commands. Bilateral lower extremity weakness. - Constitutional Vitals: Temp Pulse Resp BP Pulse Ox 97.9 F 87 16 117/79 93 03/02/20 04:06 03/02/20 04:06 03/02/20 04:06 03/02/20 04:06 03/02/20 04:06 General appearance: Present: no acute distress, well-nourished HEART Score - HEART Score Troponin: Troponin T < 0.010 ng/mL (0.00-0.029) 02/22/20 18:13 Results - Labs CBC & Chem 7: 03/01/20 14:18 02/27/20 04:25 Labs: Laboratory Last Values WBC 14.6 K/mm3 (4.5-11.0) H 02/27/20 04:25 RBC 3.18 M/mm3 (3.65-5.03) L 02/27/20 04:25 Hgb 10.7 gm/dl (11.8-15.2) L 02/27/20 04:25 Hct 30.8 % (35.5-45.6) L 02/27/20 04:25 MCV 97 fl (84-94) H 02/27/20 04:25 MCH 34 pg (28-32) H 02/27/20 04:25 MCHC 35 % (32-34) H 02/27/20 04:25 RDW 16.4 % (13.2-15.2) H 02/27/20 04:25 Plt Count 133 K/mm3 (140-440) L 03/01/20 14:18 Lymph % (Auto) 9.4 % (13.4-35.0) L 02/23/20 07:41 Collier % (Auto) 5.7 % (0.0-7.3) 02/23/20 07:41 Eos % (Auto) 1.1 % (0.0-4.3) 02/23/20 07:41 Baso % (Auto) 0.6 % (0.0-1.8) 02/23/20 07:41 Lymph # (Auto) 1.3 K/mm3 (1.2-5.4) 02/23/20 07:41 Collier # (Auto) 0.8 K/mm3 (0.0-0.8) 02/23/20 07:41 Eos # (Auto) 0.2 K/mm3 (0.0-0.4) 02/23/20 07:41 Baso # (Auto) 0.1 K/mm3 (0.0-0.1) 02/23/20 07:41 Add Manual Diff Complete 02/27/20 04:25 Total Counted 100 02/27/20 04:25 Seg Neutrophils % Agriscience Teacher 02/27/20 04:25 Seg Neuts % (Manual) 93.0 % (40.0-70.0) H 02/27/20 04:25 Band Neutrophils % 3.0 % 02/27/20 04:25 Lymphocytes % (Manual) 4.0 % (13.4-35.0) L 02/27/20 04:25 Reactive Lymphs % (Man) 0 % 02/27/20 04:25 Monocytes % (Manual) 0 % (0.0-7.3) 02/27/20 04:25 Eosinophils % (Manual) 0 % (0.0-4.3) 02/27/20 04:25 Basophils % (Manual) 0 % (0.0-1.8) 02/27/20 04:25 Metamyelocytes % 0 % 02/27/20 04:25 Myelocytes % 0 % 02/27/20 04:25 Promyelocytes % 0 % 02/27/20 04:25 Blast Cells % 0 % 02/27/20 04:25 Nucleated RBC % Not Reportable 02/27/20 04:25 Seg Neutrophils # 11.3 K/mm3 (1.8-7.7) H 02/23/20 07:41 Seg Neutrophils # Man 13.6 K/mm3 (1.8-7.7) H 02/27/20 04:25 Band Neutrophils # 0.4 K/mm3 02/27/20 04:25 Lymphocytes # (Manual) 0.6 K/mm3 (1.2-5.4) L 02/27/20 04:25 Abs React Lymphs (Man) 0.0 K/mm3 02/27/20 04:25 Monocytes # (Manual) 0.0 K/mm3 (0.0-0.8) 02/27/20 04:25 Eosinophils # (Manual) 0.0 K/mm3 (0.0-0.4) 02/27/20 04:25 Basophils # (Manual) 0.0 K/mm3 (0.0-0.1) 02/27/20 04:25 Metamyelocytes # 0.0 K/mm3 02/27/20 04:25 Myelocytes # 0.0 K/mm3 02/27/20 04:25 Promyelocytes # 0.0 K/mm3 02/27/20 04:25 Blast Cells # 0.0 K/mm3 02/27/20 04:25 WBC Morphology Not Reportable 02/27/20 04:25 Hypersegmented Neuts Not Reportable 02/27/20 04:25 Hyposegmented Neuts Not Reportable 02/27/20 04:25 Hypogranular Neuts Not Reportable 02/27/20 04:25 Smudge Cells Not Reportable 02/27/20 04:25 Toxic Granulation Not Reportable 02/27/20 04:25 Toxic Vacuolation Not Reportable 02/27/20 04:25 Dohle Bodies Not Reportable 02/27/20 04:25 Pelger-Huet Anomaly Not Reportable 02/27/20 04:25 Renetta Rods Not Reportable 02/27/20 04:25 Platelet Estimate Consistent w auto 02/27/20 04:25 Clumped Platelets Not Reportable 02/27/20 04:25 Plt Clumps, EDTA Not Reportable 02/27/20 04:25 Large Platelets Not Reportable 02/27/20 04:25 Giant Platelets Not Reportable 02/27/20 04:25 Platelet Satelliting Not Reportable 02/27/20 04:25 Plt Morphology Comment Not Reportable 02/27/20 04:25 RBC Morphology Not Reportable 02/27/20 04:25 Dimorphic RBCs Not Reportable 02/27/20 04:25 Polychromasia Not Reportable 02/27/20 04:25 Hypochromasia Few 02/27/20 04:25 Poikilocytosis Not Reportable 02/27/20 04:25 Anisocytosis 1+ 02/27/20 04:25 Microcytosis Not Reportable 02/27/20 04:25 Macrocytosis Few 02/27/20 04:25 Spherocytes Not Reportable 02/27/20 04:25 Pappenheimer Bodies Not Reportable 02/27/20 04:25 Sickle Cells Not Reportable 02/27/20 04:25 Target Cells Rare 02/27/20 04:25 Tear Drop Cells Not Reportable 02/27/20 04:25 Ovalocytes Not Reportable 02/27/20 04:25 Helmet Cells Not Reportable 02/27/20 04:25 [place] Bodies Not Reportable 02/27/20 04:25 [place] Rings Not Reportable 02/27/20 04:25 Samuel Cells Not Reportable 02/27/20 04:25 Bite Cells Not Reportable 02/27/20 04:25 Crenated Cell Not Reportable 02/27/20 04:25 Elliptocytes Not Reportable 02/27/20 04:25 Acanthocytes (Spur) Not Reportable 02/27/20 04:25 Rouleaux Not Reportable 02/27/20 04:25 Hemoglobin C Crystals Not Reportable 02/27/20 04:25 Schistocytes Not Reportable 02/27/20 04:25 Malaria parasites Not Reportable 02/27/20 04:25 ESR 39 mm/Hr (0-20) 02/26/20 16:55 [place] Bodies Not Reportable 02/27/20 04:25 Hem Pathologist Commnt No 02/27/20 04:25 PT 16.8 Sec. (12.2-14.9) H 03/01/20 14:18 INR 1.33 (0.87-1.13) H 03/01/20 14:18 APTT 44.5 Sec. (24.2-36.6) H 03/01/20 14:18 Sodium 137 mmol/L (137-145) 02/27/20 04:25 Potassium 3.6 mmol/L (3.6-5.0) 02/27/20 04:25 Chloride 104.5 mmol/L (98-107) 02/27/20 04:25 Carbon Dioxide 22 mmol/L (22-30) 02/27/20 04:25 Anion Gap 14 mmol/L 02/27/20 04:25 BUN 12 mg/dL (9-20) 02/27/20 04:25 Creatinine 0.3 mg/dL (0.8-1.3) L 02/27/20 04:25 Estimated GFR > 60 ml/min 02/27/20 04:25 BUN/Creatinine Ratio 40 % 02/27/20 04:25 Glucose 149 mg/dL (75-100) H 02/27/20 04:25 POC Glucose 149 (70-105) H 02/22/20 18:08 Lactic Acid 1.90 mmol/L (0.7-2.0) 02/24/20 10:48 Uric Acid 1.9 mg/dL (3.5-7.6) L 02/27/20 04:25 Calcium 8.0 mg/dL (8.4-10.2) L 02/27/20 04:25 Phosphorus 2.20 mg/dL (2.5-4.5) L 02/23/20 00:25 Magnesium 2.30 mg/dL (1.7-2.3) 02/23/20 09:08 Total Bilirubin 0.80 mg/dL (0.1-1.2) 02/27/20 04:25 AST 62 units/L (5-40) H 02/27/20 04:25 ALT 35 units/L (7-56) 02/27/20 04:25 Alkaline Phosphatase 98 units/L (35-129) 02/27/20 04:25 Ammonia 59.0 umol/L (25-60) 02/22/20 18:13 Total Creatine Kinase 76 units/L (55-170) 02/28/20 13:19 Troponin T < 0.010 ng/mL (0.00-0.029) 02/22/20 18:13 C-Reactive Protein 6.40 mg/dL (0.00-1.30) H 02/26/20 16:55 Total Protein 5.9 g/dL (6.3-8.2) L 02/27/20 04:25 Albumin 2.5 g/dL (3.9-5) L 02/27/20 04:25 Albumin/Globulin Ratio 0.7 % 02/27/20 04:25 TSH 0.843 mlU/mL (0.270-4.200) 02/22/20 18:13 Urine Color Marlen (Yellow) 02/22/20 Unknown Urine Turbidity Clear (Clear) 02/22/20 Unknown Urine pH 6.0 (5.0-7.0) 02/22/20 Unknown Urine Protein <15 mg/dl mg/dL (Negative) 02/22/20 Unknown Urine Glucose (UA) Neg mg/dL (Negative) 02/22/20 Unknown Urine Ketones 20 mg/dL (Negative) 02/22/20 Unknown Urine Blood Neg (Negative) 02/22/20 Unknown Urine Nitrite Neg (Negative) 02/22/20 Unknown Urine Bilirubin Neg (Negative) 02/22/20 Unknown Urine Urobilinogen 4.0 mg/dL (<2.0) 02/22/20 Unknown Ur Leukocyte Esterase Neg (Negative) 02/22/20 Unknown Urine WBC (Auto) 2.0 /HPF (0.0-6.0) 02/22/20 Unknown Urine RBC (Auto) 3.0 /HPF (0.0-6.0) 02/22/20 Unknown U Epithel Cells (Auto) < 1.0 /HPF (0-13.0) 02/22/20 Unknown Urine Bacteria (Auto) 1+ /HPF (Negative) 02/22/20 Unknown Urine Mucus 2+ /HPF 02/22/20 Unknown Salicylates < 0.3 mg/dL (2.8-20.0) L 02/22/20 18:13 Urine Opiates Screen Presumptive negative 02/22/20 18:00 Urine Methadone Screen Presumptive negative 02/22/20 18:00 Acetaminophen 5.0 ug/mL (10.0-30.0) L 02/22/20 18:13 Ur Barbiturates Screen Presumptive negative 02/22/20 18:00 Ur Phencyclidine Scrn Presumptive negative 02/22/20 18:00 Ur Amphetamines Screen Presumptive negative 02/22/20 18:00 U Benzodiazepines Scrn Presumptive negative 02/22/20 18:00 Urine Cocaine Screen Presumptive negative 02/22/20 18:00 U Marijuana (THC) Screen Presumptive negative 02/22/20 18:00 Drugs of Abuse Note Disclamer 02/22/20 18:00 Plasma/Serum Alcohol < 0.01 % (0-0.07) 02/22/20 18:13 Rheumatoid Factor < 10 IU/ml (0-13) 02/26/20 16:55 Dickson/IV: Voiding Method Incontinent IV Catheter Type [Left Hand] INT / Saline Lock IV Catheter Type [Left Wrist] INT / Saline Lock Active Medications - Current Medications Current Medications: Generic Name Dose Route Start Last Admin Trade Name Freq PRN Reason Stop Dose Admin Sodium Chloride 1,000 mls @ 75 mls/hr 02/22/20 22:45 03/02/20 00:25 Nacl 0.9% 1000 Ml IV 75 mls/hr DIRECT VINCENT Administration Ceftriaxone Sodium 2 gm in 100 mls @ 200 mls/hr 02/28/20 14:00 03/01/20 15:00 Rocephin/Ns 2 Gm/100 Ml IV 200 mls/hr Q24H VINCENT Administration Protocol Lorazepam 2 mg 02/25/20 09:44 02/25/20 10:19 Ativan IV 2 mg Q1H PRN Administration CIWA-Ar 8-15 Magnesium Hydroxide 30 ml 02/22/20 22:31 Milk Of Magnesia PO Q4H PRN Constipation Methylprednisolone Sodium Succinate 60 mg 02/26/20 16:00 03/02/20 00:25 Solu-Medrol IV 60 mg Q8H VINCENT Administration Ondansetron HCl 4 mg 02/22/20 22:31 02/29/20 18:42 Zofran IV 4 mg Q8H PRN Administration Nausea And Vomiting Sodium Chloride 10 ml 02/23/20 10:00 03/01/20 21:22 Sodium Chloride Flush Syringe 10 Ml IV 10 ml BID VINCENT Administration Sodium Chloride 10 ml 02/22/20 22:31 03/02/20 00:26 Sodium Chloride Flush Syringe 10 Ml IV 10 ml PRN PRN Administration LINE FLUSH Nutrition/Malnutrition Assess - Dietary Evaluation Nutrition/Malnutrition Findings: Nutrition Notes Start: 02/27/20 11:16 Freq: Status: Active Protocol: Document 03/01/20 13:10 LM (Rec: 03/01/20 13:16 LM [id number]) Nutrition Notes Initial or Follow up Reassessment Current Diagnosis Acute Kidney Injury Other Pertinent Diagnosis encephalopathy, lactic acidosis, sacral wound, alcoholic liver disease Current Diet Regular Labs/Tests Reviewed Pertinent Medications NS at 75ml/hr Solu-Medrol Height 5 ft 10 in Weight 77 kg [place] Body Weight (kg) 75.45 BMI 24.3 Weight Status Appropriate Subjective/Other Information Unable to speak to pt and unable to reach RN. Pt has 25- 75% intakes in chart. Burn Absent Trauma Absent Minimum of two criteria No Reduced [place] Strength Measurably Reduced (severe) #2 Nutrition Diagnosis Increased nutrient needs ( specify in comment below) Diagnosis Progress(for reassessment Continues documentation) #1 Nutrition Diagnosis Inadequate oral intake Diagnosis Progress(for reassessment Continues documentation) Is patient on ventilator? No Is Patient Ambulatory and/or Out of Bed No REE-([facility]-confined to bed) 1973.280 Calculation Used for Recommendations [facility] Additional Notes Protein Needs:96-116g (1.25-1. 5g/kg) Fluid Needs: 1 mL/kcal Nutrition Intervention Change Diet Order: continue Add Supplement/Snack (indicate name/kcal Ensure Enlive BID /protein ) Provides kCal: 700 Provides Protein (gm) 40 Goal #1 Meet at least 75% of energy and protein needs via PO and ONS intakes Goal #2 Wound healing Anticipated Discharge Needs: Regular Follow-Up By: 03/03/20 Additional Comments F/U for PO/ONS intakes
--- NOTE | 2020-03-02 14:10 | Consultation ---
History of Present Illness Consult date: 03/02/20 Requesting physician: SHAKIR CHURCH Reason for Consult: Paraplegia Chief complaint: Weakness History of present illness: 50 yo male with alcoholism and no other know medical conditions (per sister, [place] (via bedside phone conversation), presents with an unknown time of onset of leg weakness and arm weakness. Per his sisters, the patient was living by himself, is a heavy alcoholic, and lost his job in July 2019, which may have worsened his alcoholism. Per his sisters, one of the people around him may have noticed him limping around last month but they are unsure. Noted to have not been eating also during this time period. The patient is currently altered in mentation and is not able to provide a history. He was evaluated by Neurology a few days ago and concern was raised for possible AIDP. The patient underwent a MRI Cervical / Lumbar Spine w/o contrast which were unremarkable for an acute process. Past History Past Medical History: No medical history Past Surgical History: No surgical history Social history: smoking (Current daily smoker), alcohol abuse Family history: no significant family history Medications and Allergies Allergies Allergy/AdvReac Type Severity Reaction Status Date / Time No Known Allergies Allergy Unverified 02/22/20 18:14 Home Medications Medication Instructions Recorded Confirmed Last Taken Type LORazepam [Ativan] 0.5 mg PO Q6H PRN 10 Days #24 02/24/20 Unknown Rx tablet Active Meds: Active Medications Sodium Chloride (Nacl 0.9% 1000 Ml) 1,000 mls @ 75 mls/hr IV DIRECT VINCENT Last Admin: 03/02/20 00:25 Dose: 75 mls/hr Documented by: Ceftriaxone Sodium (Rocephin/Ns 2 Gm/100 Ml) 2 gm in 100 mls @ 200 mls/hr IV Q24H VINCENT; Protocol Stop: 03/03/20 14:29 Last Admin: 03/01/20 15:00 Dose: 200 mls/hr Documented by: Lorazepam (Ativan) 2 mg IV Q1H PRN PRN Reason: CIWA-Ar 8-15 Last Admin: 02/25/20 10:19 Dose: 2 mg Documented by: Magnesium Hydroxide (Milk Of Magnesia) 30 ml PO Q4H PRN PRN Reason: Constipation Methylprednisolone Sodium Succinate (Solu-Medrol) 60 mg IV Q8H VINCENT Last Admin: 03/02/20 10:01 Dose: 60 mg Documented by: Ondansetron HCl (Zofran) 4 mg IV Q8H PRN PRN Reason: Nausea And Vomiting Last Admin: 02/29/20 18:42 Dose: 4 mg Documented by: Sodium Chloride (Sodium Chloride Flush Syringe 10 Ml) 10 ml IV BID VINCENT Last Admin: 03/02/20 10:02 Dose: 10 ml Documented by: Sodium Chloride (Sodium Chloride Flush Syringe 10 Ml) 10 ml IV PRN PRN PRN Reason: LINE FLUSH Last Admin: 03/02/20 00:26 Dose: 10 ml Documented by: Physical Examination - Vital Signs Vital Signs: Vital Signs Pulse Ox 99 02/22/20 17:55 - Additional Exam Additional Exam: Gen: nad, appears malnourished; Head: normocephalic; Eyes: no gaze deviation; no ptosis; ENT: normal vocalization; CVS: warm and well-perfused; Pulm: no respiratory distress; GI: non-distended, non-protuberant; Ext: no cyanosis or edema at distal extremities; Skin: no acute rash or hives at distal extremities; Heme: no pathologic bruising or ecchymosis at distal extremities; Neuro: alert, oriented to self only, not age, month, surroundings, situation, +perseveration, +tangential, slight dysarthria, +mixed dysphasia; CN 2 - pupils reactive but not participatory w/ visual field exam, CN 3, 4, 6 - spontaneous eye movements laterally observed o/w not following commands, CN 5, 7 - opens/closes eyes spontaneously; gross facial movement appears symmetric o/w not cooperative, CN 8 - hearing appears grossly intact, CN 9, 10 - spontaneous swallow noted, CN 11/12 - not cooperative; Motor - at least 3-/5 at LUE and non- participatory w/ RUE; 0/5 at BLEs (unclear if full effort given or not); Sensory - pt does not answer to intact sensation or not, Cerebellar - pt is not cooperative vs. secondary to weakness, Gait -deferred secondary to paraplegia. Results - Laboratory Findings CBC and BMP: 03/01/20 14:18 02/27/20 04:25 Abnormal Lab Findings: Abnormal Labs 02/22/20 02/22/20 02/22/20 18:08 18:13 18:13 WBC 18.6 H RBC Hgb Hct MCV 98 H MCH MCHC RDW 16.3 H Plt Count Lymph % (Auto) 7.7 L Johnston # (Auto) 1.0 H Seg Neutrophils % 86.6 H Seg Neuts % (Manual) Lymphocytes % (Manual) Seg Neutrophils # 16.1 H Seg Neutrophils # Man Lymphocytes # (Manual) PT 15.3 H INR 1.19 H APTT Sodium Potassium Chloride Carbon Dioxide BUN Creatinine Glucose POC Glucose 149 H Lactic Acid Uric Acid Calcium Phosphorus Total Bilirubin AST Total Creatine Kinase C-Reactive Protein Total Protein Albumin Salicylates Acetaminophen 02/22/20 02/22/20 02/22/20 18:13 18:13 18:13 WBC RBC Hgb Hct MCV MCH MCHC RDW Plt Count Lymph % (Auto) Johnston # (Auto) Seg Neutrophils % Seg Neuts % (Manual) Lymphocytes % (Manual) Seg Neutrophils # Seg Neutrophils # Man Lymphocytes # (Manual) PT INR APTT Sodium 130 L Potassium 3.1 L Chloride 92.4 L Carbon Dioxide 15 L BUN 32 H Creatinine 0.7 L Glucose 156 H POC Glucose Lactic Acid 4.70 H* Uric Acid Calcium Phosphorus Total Bilirubin 2.10 H AST 97 H Total Creatine Kinase 759 H C-Reactive Protein Total Protein Albumin 3.2 L Salicylates < 0.3 L Acetaminophen 02/22/20 02/22/20 02/23/20 18:13 19:25 00:25 WBC RBC Hgb Hct MCV MCH MCHC RDW Plt Count Lymph % (Auto) Johnston # (Auto) Seg Neutrophils % Seg Neuts % (Manual) Lymphocytes % (Manual) Seg Neutrophils # Seg Neutrophils # Man Lymphocytes # (Manual) PT INR APTT Sodium Potassium Chloride Carbon Dioxide BUN Creatinine Glucose POC Glucose Lactic Acid 3.80 H* 3.60 H* Uric Acid Calcium Phosphorus Total Bilirubin AST Total Creatine Kinase C-Reactive Protein Total Protein Albumin Salicylates Acetaminophen 5.0 L 02/23/20 02/23/20 02/23/20 00:25 07:41 07:41 WBC 13.6 H RBC 3.23 L Hgb 10.7 L Hct 31.4 L D MCV 97 H MCH 33 H MCHC RDW 15.9 H Plt Count Lymph % (Auto) 9.4 L Johnston # (Auto) Seg Neutrophils % 83.2 H Seg Neuts % (Manual) Lymphocytes % (Manual) Seg Neutrophils # 11.3 H Seg Neutrophils # Man Lymphocytes # (Manual) PT 16.6 H INR 1.33 H APTT Sodium Potassium Chloride Carbon Dioxide BUN Creatinine Glucose POC Glucose Lactic Acid Uric Acid Calcium Phosphorus 2.20 L Total Bilirubin AST Total Creatine Kinase C-Reactive Protein Total Protein Albumin Salicylates Acetaminophen 02/23/20 02/23/20 02/23/20 07:41 07:41 09:08 WBC RBC Hgb Hct MCV MCH MCHC RDW Plt Count Lymph % (Auto) Johnston # (Auto) Seg Neutrophils % Seg Neuts % (Manual) Lymphocytes % (Manual) Seg Neutrophils # Seg Neutrophils # Man Lymphocytes # (Manual) PT INR APTT Sodium Potassium 2.9 L* Chloride Carbon Dioxide BUN Creatinine 0.4 L Glucose 114 H POC Glucose Lactic Acid 2.10 H* 2.30 H* Uric Acid Calcium 7.7 L Phosphorus Total Bilirubin AST Total Creatine Kinase C-Reactive Protein Total Protein Albumin Salicylates Acetaminophen 02/23/20 02/23/20 02/23/20 10:03 13:37 18:00 WBC RBC Hgb Hct MCV MCH MCHC RDW Plt Count Lymph % (Auto) Johnston # (Auto) Seg Neutrophils % Seg Neuts % (Manual) Lymphocytes % (Manual) Seg Neutrophils # Seg Neutrophils # Man Lymphocytes # (Manual) PT INR APTT Sodium Potassium Chloride Carbon Dioxide BUN Creatinine Glucose POC Glucose Lactic Acid 2.30 H* 3.70 H* 2.80 H* Uric Acid Calcium Phosphorus Total Bilirubin AST Total Creatine Kinase C-Reactive Protein Total Protein Albumin Salicylates Acetaminophen 02/24/20 02/24/20 02/24/20 07:15 07:15 07:15 WBC 11.2 H RBC 2.96 L Hgb 9.8 L Hct 29.1 L MCV 98 H MCH 33 H MCHC RDW 16.0 H Plt Count 119 L Lymph % (Auto) Johnston # (Auto) Seg Neutrophils % Seg Neuts % (Manual) Lymphocytes % (Manual) Seg Neutrophils # Seg Neutrophils # Man Lymphocytes # (Manual) PT INR APTT Sodium Potassium 3.5 L D Chloride 111.6 H Carbon Dioxide BUN Creatinine 0.4 L Glucose 109 H POC Glucose Lactic Acid Uric Acid Calcium 7.7 L Phosphorus Total Bilirubin AST 67 H Total Creatine Kinase 265 H C-Reactive Protein Total Protein 5.5 L D Albumin 2.5 L Salicylates Acetaminophen 02/25/20 02/25/20 02/26/20 05:27 05:27 16:55 WBC 11.8 H RBC 2.97 L Hgb 9.9 L Hct 29.2 L MCV 98 H MCH 33 H MCHC RDW 16.2 H Plt Count 107 L Lymph % (Auto) Johnston # (Auto) Seg Neutrophils % Seg Neuts % (Manual) Lymphocytes % (Manual) Seg Neutrophils # Seg Neutrophils # Man Lymphocytes # (Manual) PT INR APTT Sodium Potassium 3.3 L Chloride 110.7 H Carbon Dioxide BUN Creatinine 0.4 L Glucose POC Glucose Lactic Acid Uric Acid Calcium 7.7 L Phosphorus Total Bilirubin AST 74 H Total Creatine Kinase 353 H C-Reactive Protein 6.40 H Total Protein 5.5 L Albumin 2.3 L Salicylates Acetaminophen 02/26/20 02/27/20 02/27/20 16:55 04:25 04:25 WBC 14.6 H RBC 3.18 L Hgb 10.7 L Hct 30.8 L MCV 97 H MCH 34 H MCHC 35 H RDW 16.4 H Plt Count 91 L Lymph % (Auto) Johnston # (Auto) Seg Neutrophils % Seg Neuts % (Manual) 93.0 H Lymphocytes % (Manual) 4.0 L Seg Neutrophils # Seg Neutrophils # Man 13.6 H Lymphocytes # (Manual) 0.6 L PT INR APTT Sodium Potassium Chloride Carbon Dioxide BUN Creatinine 0.3 L Glucose 149 H POC Glucose Lactic Acid Uric Acid 2.2 L Calcium 8.0 L Phosphorus Total Bilirubin AST 62 H Total Creatine Kinase C-Reactive Protein Total Protein 5.9 L Albumin 2.5 L Salicylates Acetaminophen 02/27/20 03/01/20 03/01/20 04:25 14:18 14:18 WBC RBC Hgb Hct MCV MCH MCHC RDW Plt Count 133 L Lymph % (Auto) Johnston # (Auto) Seg Neutrophils % Seg Neuts % (Manual) Lymphocytes % (Manual) Seg Neutrophils # Seg Neutrophils # Man Lymphocytes # (Manual) PT 16.8 H INR 1.33 H APTT 44.5 H Sodium Potassium Chloride Carbon Dioxide BUN Creatinine Glucose POC Glucose Lactic Acid Uric Acid 1.9 L Calcium Phosphorus Total Bilirubin AST Total Creatine Kinase C-Reactive Protein Total Protein Albumin Salicylates Acetaminophen Assessment and Plan 50 yo male with alcoholism and no other know medical conditions (per sister, [place] (via bedside phone conversation), presents with an unknown time of onset of leg weakness and arm weakness. 1. Quadriparesis - multiple etiologies including autoimmune, inflammatorry, infectious, paraneoplastic, manlnutrition, metabolic, or toxic etiologies; unable to complete a throrough neurologic exam via televideo that is needed to aid in the diagnosis and treatment of this patient. Multiple labs/studies can be ordered as a shotgun approach to care but recommend transfer of pt to a hospital w/ a local neurologist for a focused, efficient workup, which may require further DIRECTOR DIGITAL ANALYTICS imaging w/ wo contrast and/or EMG-NCV evaluation and a more elaborate serologic or csf workup. 2. I spoke to the primary attending regarding my concern that the patient will need to be transferred to a nearby hospital with a local neurologist who can perform a bedside exam for a thorough workup. He acknowledges understanding. Chung Munroe MD Neurology
[2020-03-02] MEDS: cefTRIAXone/NS 2 GM/100 ML 2 GM/100 ML BAG IV SCH (17:00)
[2020-03-03] MEDS: methylPREDNISolone Sod Succinate 125 MG/2 ML INJ IV SCH ×3 (01:39→17:30)
[2020-03-03] MEDS: SODIUM CHLORIDE 0.9% 1000 ML 1,000 ML IV SCH (05:05)
[2020-03-03 05:17] LABS: Blood Urea Nitrogen 20 mg/dL (9-20); Calcium 7.9 mg/dL (8.4-10.2); Hemolysis Index 24
[2020-03-03 05:19] LABS: Hematocrit 29.7 % (35.5-45.6); Hemoglobin 10.3 gm/dl (11.8-15.2); Mean Corpuscular HGB Conc 35 % (32-34); Mean Corpuscular Volume 97 fl (84-94); Platelet Count 161 K/mm3 (140-440); Red Blood Count 3.07 M/mm3 (3.65-5.03); Red Cell Distribution Width 17.5 % (13.2-15.2)
[2020-03-03 05:22] LABS: BUN/Creatinine Ratio 100
[2020-03-03 05:29] LABS: INR 1.28 (0.87-1.13)
[2020-03-03 07:15] LABS: Basophils % (Manual) 0 % (0.0-1.8); Eosinophils % (Manual) 0 % (0.0-4.3); Total Cells Counted 100
[2020-03-03 07:16] LABS: Anisocytosis Few; Hypochromasia Few; Macrocytosis Few; Platelet Estimate Consistent w Auto
--- NOTE | 2020-03-03 09:10 | Procedure Note ---
Date of procedure: 03/03/20 Pre-op diagnosis: mental status changes, neuro deficit, meningitis Post-op diagnosis: same Procedure: Lumbar punture under flouro Findings: none Anesthesia: local Surgeon: ELEONORA VALLEJO Estimated blood loss: none Pathology: list (4 tubes (8cc)) Specimen disposition: to lab Condition: stable Disposition: floor
[2020-03-03] MEDS ORDERED: THIAMINE 100 MG TAB PO SCH (10:00)
[2020-03-03] MEDS ORDERED: FOLBEE PLUS CZ (FOLIC ACID/VIT BCOMP&C/CU/ZNOX) PO SCH (10:00)
--- NOTE | 2020-03-03 10:21 | Discharge Summary ---
Providers - Providers Date of Admission: 02/27/20 14:46 Date of discharge: 03/03/20 Attending physician: BLAIR GUZMAN MD 02/25/20 08:35 Physical Therapy Evaluation and Treat [CONS] Urgent Comment: Severe debility Reason For Exam: Unable to walk 02/26/20 14:43 Consult to Physician [CONS] Routine Comment: Sed rate, CRP, ARABELLA, dsDNA, CCP ordered. Consulting Provider: DANIELA HAMLIN Physician Instructions: Polyarthralgia present knee joints are very painfu Reason For Exam: paraplegia 02/27/20 01:26 Consult to Wound/ET Nurse [CONS] Routine Reason For Exam: wound eval 03/02/20 07:11 Consult to Physician [CONS] Routine Comment: Consulting Provider: ROBY MUNROE Physician Instructions: Reason For Exam: Paraplegia Primary care physician: CONTRACT GRAPHIC DESIGNER Hospitalization Reason for admission: Alcohol withdrawal, chronic alcohol abuse, quadriparesis Condition: Fair Pertinent studies: MRI of cervical and thoracic spine Procedures: Lumbar puncture Hospital course: 50-year-old male with known history of alcohol abuse presents to the emergency room today for evaluation of changes in mental status. Family members indicates that over the past 3 months he has been sent back home from work as he appeared depressed. His apartment was said to be disorganized and unkept. He has not been taking a shower and he has also had decreased oral intake over the past 1 week. Patient has bilateral upper and lower extremity weakness. Patient is a ltered and is not able to give any history because the patient has altered mental status. At presentation patient looks like he was in alcohol withdrawal DT and was treated, currently does not look like in withdrawal. Patient was treated with IV Rocephin for leukocytosis and lactic acidosis. Lactic acidosis resolved but patient still has leukocytosis because the patient is on steroids. Does not look like the patient has infection, because patient does not have any fever or any source of infection identified. Patient mentation did not get better. Was trying to talk to the patient using slab miller operator but personal line department supervisor with patient talking doesn't make sense. He was initially seen by neurology in the hospital and recommend to do LP and LP was done today [03/03/2020] prel iminary result is back is normal. And cultures pending. Have discussed yesterday with tele-neurologist Dr Roby Munroe and he could not examine the patient through tele-neurology because the patient does not follow commands. He recommends to be transferred to a center where neurologist is available on site. I have called many hospitals and finally treatment when accepted the patient. Discussed with neurologist Dr Rivera and she will see the patient as a consult. Discussed with hospitalist Dr Pastrana and she accepted the patient to the hospitalist service. Patient is still confused, he does not follow commands, he has weakness both upper and lower extremities but difficult to assess because the patient is not follow commands. Patient is hemodynamically stable at the time of discharge. CT head was done and negative, MRI of cervical and thoracic spine was done and negative. Rheumatoid factor is negative, ARABELLA comeback positive today. Disposition: [id number] ANOTHER TYPE THCARE Time spent for discharge: 45 minutes - Discharge Diagnoses (1) Quadriparesis Status: Acute (2) Acute encephalopathy Status: Acute (3) Acute kidney injury Status: Acute (4) Alcoholic ketoacidosis Status: Acute (5) Alcoholic liver disease Status: Acute (6) Hypokalemia Status: Acute (7) Paraplegia Status: Acute (8) SIRS (systemic inflammatory response syndrome) Status: Acute Core Measure Documentation - Palliative Care Palliative Care/ Comfort Measures: Not Applicable - Core Measures Any of the following diagnoses?: none Exam - Physical Exam Narrative exam: Patient is confused Not in cardiopulmonary distress. The patient appeared well nourished and normally developed. Vital signs as documented. Head exam is unremarkable. No scleral icterus . Neck is without jugular venous distension, thyromegaly, or carotid bruits. Lungs are clear to auscultation. Cardiac exam reveals regular rate and Rhythm. Abdominal exam reveals normal bowel sounds, nontender, no organomegaly. Extremities quadriparesis. SHOT BAGGER: Patient does not follow commands. Patient has quadriparesis. - Constitutional Vitals: Temp Pulse Resp BP Pulse Ox 97.7 F 76 16 114/84 96 03/03/20 07:28 03/03/20 07:28 03/03/20 07:28 03/03/20 07:28 03/03/20 07:28 Plan Activity: advance as tolerated Weight Bearing Status: Weight Bear as Tolerated Diet: advance as tolerated Follow up with: PRIMARY CARE,MD [Primary Care Provider] - 7 Days Prescriptions: LORazepam [Ativan] 0.5 mg PO Q6H PRN 10 Days #24 tablet PRN Reason: Anxiety
[2020-03-03 12:00] LABS: ANA Screen, IFA Positive (Negative)
[2020-03-03 12:38] LABS: Appearance,CSF Clear; White Blood Cell,CSF 0 /mm3 (1-10)
[2020-03-03 12:39] LABS: Red Blood Cell,CSF 0 /mm3 (0-0)
[2020-03-03 13:53] LABS: Glucose,CSF 65 mg/dL
[2020-03-03 14:06] LABS: Basophils CSF 0 %
[2020-03-03] MEDS: cefTRIAXone/NS 2 GM/100 ML 2 GM/100 ML BAG IV SCH (17:29)
[2020-03-03 20:10] VITALS: BP 128/88
--- NOTE | 2020-03-04 13:05 | Fluoroscopy Report ---
LUMBAR PUNCTURE INDICATION : Paraplegia PROCEDURE: The risks (including but not limited to bleeding, infection, and spinal headache) and radha efits were explained to the patient and informed consent was obtained. A time out procedure was perf ormed. The procedure site was prepped and draped in the usual sterile fashion and lidocaine was used for local anesthesia. Under fluoroscopic guidance, a 22-gauge spinal needle was advanced into the L2-3 interlaminar space. The opening pressure was 100 mm H2O which was calculated by adding the length of the needle (9 cm) to the height of the CSF column. 4 separate collection tubes were used to obtain 2, 2, 2 and 2 mL of CS F. Samples were sent to the lab per the ordering physician specifications for further evaluation. The patient tolerated the procedure well with no complications. IMPRESSION: Successful lumbar puncture as outlined above. Opening pressure was 100 mm H20. Fluoroscopic time: 0.5 minutes Number of fluoroscopic images: 1 Signer Name: Ernesto Kolb Jr, MD Signed: 03/03/2020 2:16 PM Workstation Name: [id number]
== END 2020-03-03 22:13 | disposition short-term general hospital (02) | DRG 70 ==
LOC: ED 17:47 → 4A 22:07 → OBSVTOIN 02-27 14:46
PROVIDERS: ADMIT Internal Medicine Geriatric Medicine; ATTEND Internal Medicine
PROC: 009U3ZX Drainage of Spinal Canal, Percutaneous Approach, Diagnostic (ICD-10-PCS; principal; 2020-03-03)
PROC: B01B1ZZ Fluoroscopy of Spinal Cord using Low Osmolar Contrast (ICD-10-PCS; 2020-03-03)
DX: G93.40 Encephalopathy, unspecified (principal); G82.50 Quadriplegia, unspecified; N17.9 Acute kidney failure, unspecified; E87.2 Acidosis; R65.10 Systemic inflammatory response syndrome (SIRS) of non-infectious origin without acute organ dysfunction; E87.1 Hypo-osmolality and hyponatremia; K70.9 Alcoholic liver disease, unspecified; F17.200 Nicotine dependence, unspecified, uncomplicated; E86.0 Dehydration; E87.6 Hypokalemia; D64.9 Anemia, unspecified; M25.50 Pain in unspecified joint
CPT/HCPCS: 36415; 62270; 70450; 71045; 71260; 72141; 72148; 74177; 77003; 80048; 80053; 80307; 80320; 81001; 82085; 82140; 82550; 82607; 82747; 82947; 82962; 83735; 84100; 84160; 84443; 84484; 84550; 85007; 85025; 85027; 85049; 85610; 85652; 85730; 86038; 86140; 86200; 86225; 86403; 86431; 87040; 87102; 87116; 88112; 88312; 89051; 93005; 96365; 96375; G0378; G0480; J0692; J0696; J1644; J2060; J2405; J2930; J3370; J3480; J7030; J7040; J7050; Q9967